=== PATIENT | male | born 1995 | race Caucasian/White ===

== ENCOUNTER → 2023-01-18 13:53 | Outpatient (CLI) | payer OTHER, SELFPAY ==
--- NOTE | 2023-01-18 | DI.MRI.S_ITS ---
PROCEDURE: MR SHOULDER LT W CON INDICATIONS: Bicipital tendinitis, left shoulder TECHNIQUE: After the administration of 12 mL of dilute intra-articular Gadolinium contrast, oblique coronal T1 and T2 spin echo with fat saturation, oblique sagittal T1 spin echo with and without fat saturation, oblique sagittal T2 fast spin echo with fat saturation, axial T1 spin echo with fat saturation through the shoulder. COMPARISON: [facility], , [place] SHOULDER INJECTION MR/CT LT, 01/18/2023, 14:49. [facility], [place], XR SHOULDER 2+ VIEWS LEFT, 08/08/2022, 10:54. FINDINGS: Image quality: Excellent. Rotator cuff: The supraspinatus, infraspinatus, and subscapularis tendons appear intact throughout. No rotator cuff muscle atrophy on sagittal images. Bones and bursae: Moderate osseous edema is seen at the distal clavicle adjacent to the acromioclavicular joint. No definite fracture line is seen. The acromioclavicular joint is normally aligned. There is a small amount of noncommunicating subacromial/subdeltoid bursal fluid. No focal cartilage defect is seen in the glenohumeral joint. No filling defect is seen in the glenohumeral joint space. Capsule and soft tissues: The glenoid labrum is intact. Proximal biceps long head tendon is intact. The glenohumeral ligaments appear to be intact. IMPRESSION: 1. Nonspecific osseous edema at the distal clavicle, possibly related to an osseous contusion, mild acromioclavicular separation injury, or chronic repetitive stress injury/distal acromial osteolysis. The acromioclavicular joint is normally aligned. 2. No labral tear. Biceps long head tendon is intact. No significant rotator cuff tendon tear. 3. Small noncommunicating subacromial/subdeltoid bursal effusion or mild bursitis. Approved by: Darwin Guardado M.D. on 01/18/2023 at 20:54
--- NOTE | 2023-01-18 | DI.RAD.S_ITS ---
PROCEDURE: [place] SHOULDER INJECTION MR/CT LT INDICATIONS: Bicipital tendinitis, left shoulder COMPARISON: None TECHNIQUE: The indications, alternatives, benefits, risks, and complications of the procedure were explained to the patient. Written informed consent was obtained and placed in the chart. The shoulder was examined fluoroscopically and a site for needle placement chosen for entry into the glenohumeral joint from an anterior approach. The skin was prepped and draped in a sterile fashion, and 1% lidocaine infiltrated from skin down to joint capsule. A spinal needle was inserted into the glenohumeral joint, and a small amount of iodinated contrast media injected to confirm intra-articular placement of the needle tip. This was followed by approximately 12 mL dilute solution of a gadolinium containing MR contrast agent. The needle was removed and a dressing was applied. The patient was given postprocedural instructions and sent to the MR suite for MR imaging. FINDINGS: A single fluoroscopic spot image demonstrates intra-articular location of injected iodinated contrast. IMPRESSION: Successful fluoroscopically guided administration of dilute Gadolinium solution into the shoulder joint for MR arthrogram. Dictated by: Darwin Guadalupe M.D. on 01/18/2023 at 16:06 Approved by: Darwin Guadalupe M.D. on 01/18/2023 at 16:06
== END ==
PROVIDERS: Referring Provider Orthopaedic Surgery; Visit Provider Orthopaedic Surgery
DX: M75.22 Bicipital tendinitis, left shoulder (principal); R60.0 Localized edema; M75.52 Bursitis of left shoulder
CPT/HCPCS: 23350; 73222

== ENCOUNTER → 2023-12-06 11:11 | Outpatient (CLI) | payer OTHER, SELFPAY ==
[2023-12-26 11:11] LABS: Lactoferrin, Fecal Quant <1.00 ug/mL(g) (0.00-7.24)
== END ==
PROVIDERS: PCP Family Medicine; Referring Provider Family Medicine; Visit Provider Family Medicine
DX: K58.2 Mixed irritable bowel syndrome (principal); R19.4 Change in bowel habit
CPT/HCPCS: 83631

== ENCOUNTER 2024-02-13 09:45 | Outpatient (RCR) | payer OTHER, SELFPAY ==
--- NOTE | 2024-01-15 15:55 | PT.OIE ---
Current Diagnoses Stiffness of right shoulder, not elsewhere classified (01/15/24) Stiffness of right ankle, not elsewhere classified (01/15/24) Achilles tendinitis, unspecified leg (01/15/24) Myalgia, other site (01/15/24) Other lack of coordination (01/15/24) Weakness (01/15/24) Past Medical History (Last Updated 12/16/23 @ 20:44 by Andreina Nieves) Achilles tendonitis Chronic back pain Depression Family history of rheumatoid arthritis Foot pain Fractures Irritable bowel syndrome with both constipation and diarrhea Rheumatoid arthritis (~2010) Shoulder pain Past Surgical History (Last Updated 12/16/23 @ 20:44 by Andreina Nieves) Anesthesia History of surgery (~03/06/23) Visit Care Team Role Provider Type Tonya Hernandez DO Attending Provider Physician Family Provider Primary Care Provider Referring Provider Specialty: Family Practice Address: [address] [place] [address], [address], [facility] Email: [email or web address] Physical Therapy Initial Evaluation PT-OP-A Visit Information Start: 01/12/24 12:55 Freq: Status: Active Protocol: Document 01/15/24 09:00 NM (Rec: 01/15/24 10:27 NM [id number]) Out-Patient Physical Therapy Visit Information Visit Information Visit Type Initial Evaluation Visit Start Time 09:00 Visit Stop Time 09:50 Visit Number Evaluation Information Evaluation Date 01/15/24 Precautions Precautions Hx of L distal clavicle excision, arthritis PT-OP-B Current Condition Start: 01/12/24 12:55 Freq: Status: Active Protocol: Document 01/15/24 09:00 NM (Rec: 01/15/24 10:27 NM [id number]) Current Condition History of Current Condition Onset Date July 2023 R ankle, about 1 year ago R shoulder blade Current Complaints pain, achiness, decreased participation History of Current Condition Pt presents with R shoulder blade and R achilles pain. Has been running, but reports that increase in training makes works. Better when resting but comes back with trianing. Reports that feels puffy, achiness, worse in am. He has had this since july. He is planning to run a race this weekend; 15 miles, planning to go slow and walk a lot. Reports that he has been doing single leg heel raise on stairs (states not great with running but ok with resting), has been been doing seated heel raises with wt; feels good during. Pt has been running off and on, states he amped up too fast which led to. He states that he has been intermittent strength training and single leg stability; states 3-4 way since injury. Pt has been weaning off of running, states has been running 2-5 mi, current mileage 2-3 days/wk, opting for rest. Prior to training, 1x/wk for 2-5 miles; when training was running 5-7 mi, 3-4 days/wk and amping up speed and distal; all trail running. Started this about 1 month before July 2023. Pt has hx of this before several times (hx of dancing which was constant, most recent in 2020 from a hike with news), stopped running for 3 months. Worse with hills, push off. Wears superfeet when running ( high arch), was wearing a new shoe when he was injured. Has tendency to want to roll it but reports pops. Was icing repetitively. Pt does a lot of hiking and back packing, reports feels good with hiking and walking up hills; reports achy but not stiff the next day. Pt reports that he had L shoulder surgery distal clavicle excision; was helping his parents move, has R shoulder blade/rhomboid pain. Worse with lifting meredith away from body, crunching, pinching with lifting up, sitting, sleeping on R shoulder; he reports rhomboid strain on R side from lifting several years ago. He reports that he has neck tightness and soreness, rolls his neck a lot . Denies injuries to neck, numbness/tingling/burning. Does not move around. Has not been doing any strengthening. Has not been doing any lifting or exericse for now. 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)- currently in off season of work right now PT-OP-C Subjective Start: 01/12/24 12:55 Freq: Status: Active Protocol: Document 01/15/24 09:00 NM (Rec: 01/15/24 10:27 NM [id number]) OP-PT Subjective Patient Comments Patient Comments Pt consents to participate in evaluation Patient Questionnaires Foot & Ankle Ability Measure- ADL and Sports FAAM-ADL Score 80/84 FAAM-Sport Score 22/32 Lower Extremity Functional Scale LEFS Score 70/80 OP-PT Pain Assessment Location R scapula Pain Location Details rhomboid, LS, UT Intensity 4 Scale Used Numeric (0 - 10) Pain Aggravating Factors Lifting,Breathing Pain Alleviating Factors Heat,Massage,Rest R ankle Pain Location Details Achilles, forward of achilles on lateral and medial side Intensity 4 Scale Used Numeric (0 - 10) Description Aching Description- Other puff, annoying Frequency Frequent Pain Aggravating Factors Exercise,Walking Other Pain Aggravating Factors running Pain Alleviating Factors Rest PT-OP-E Functional Tests Start: 01/12/24 12:55 Freq: Status: Active Protocol: Document 01/15/24 09:00 NM (Rec: 01/15/24 10:27 NM [id number]) Functional Tests Squat Test Score 10 Comments decreased heel cord length, valgus Single Leg Squat Test Score 2 ea Comment valgus, poor hip and ankle stability Other Dorsiflexion test Name of Test in 1/2 kneel, measured 4 fingers from wall, heel on ground Score 4 cm R, 3 cm L Comment reports tightness in achilles PT-OP-F Manual Assessment Start: 01/12/24 12:55 Freq: Status: Active Protocol: Document 01/15/24 09:00 NM (Rec: 01/15/24 10:27 NM [id number]) Manual Assessments Soft Tissue Assessment Soft Tissue Mobility Assessment L medial scapular border 10 cm from spine with winging, R medial scapular border 8 cm from spine with no winging No noticeable or palpable bulge or tender spot on R Achilles Joint Mobility Assessment Joint Mobility Assessment Mild limitations in R scapular mobility, demos strong tendency for elevation; mild joint clicking Decreased R ankle talocrural and subtalar mobility, decreased midfoot mobility PT-OP-G Mobility & Gait Start: 01/12/24 12:55 Freq: Status: Active Protocol: Document 01/15/24 09:00 NM (Rec: 01/15/24 10:27 NM [id number]) OP Gait Assessment Gait Gait Assistance Required: Independent Distance (Feet) 150 Comments Gait Comments Decreased R propulsion and early heel off Mild limitations in trunk rotation with gait PT-OP-J Posture/Palpation/Skin Start: 01/12/24 12:55 Freq: Status: Active Protocol: Document 01/15/24 09:00 NM (Rec: 01/15/24 10:27 NM [id number]) Posture Evaluation Position Standing Head/C-Spine Posture Forward Head Shoulder Posture (L) Rounded,(R) Rounded Scapula Posture (L) Protracted,(R) Elevated,(L ) Winged Arm Posture (L) Internally Rotated,(R) Internally Rotated Pelvis Posture Anteriorly Tilted Foot Arch (R) High Arch,(L) Medium Arch Palpation Assessment Location R scapula Palpation Details Tightness and mild tenderness along trapezius, levator scapula, rhomboids, lat No tenderness along thoracic or cervical spine except mild tenderness at CT junction R ankle Palpation Details Mild tenderness along R achilles, no significant thickening compared to LLE PT-OP-K Range of Motion Start: 01/12/24 12:55 Freq: Status: Active Protocol: Document 01/15/24 09:00 NM (Rec: 01/15/24 10:27 NM [id number]) Cervical Spine Range of Motion Cervical Spine Active Degrees Flexion 60 Extension 60 Rotation Left 60 Rotation Right 80 Lateral Flexion Left 40 Lateral Flexion Right 45 Comments tighter on R than L, pinching w/ extension TS: 6 cm rotation, 8 deg L rotation, WFL all other directions w/o pain Shoulder Goniometric Range of Motion Shoulder Right Testing Position Sitting Flexion 140 Abduction 140 External Rotation at 90 degrees 90 Abduction Left Testing Position Sitting Flexion 150 Abduction 140 External Rotation at 90 degrees 90 Abduction Ankle and Foot Goniometric Range of Motion Ankle and Foot Right Dorsiflexion with Knee Flexed 2 Plantarflexion 40 Inversion 20 Eversion 10 Left Dorsiflexion with Knee Flexed 4 Plantarflexion 50 Inversion 30 Eversion 15 PT-OP-L Special Tests Start: 01/12/24 12:55 Freq: Status: Active Protocol: Document 01/15/24 09:00 NM (Rec: 01/15/24 10:27 NM [id number]) Special Tests Cervical Spine Special Tests Distraction Comments assess next session Spurling's Test Comments assess next session Shoulder Special Tests Empty Can Test Results - Foot/Ankle Special Tests Freitas Test Results - PT-OP-M Strength Start: 01/12/24 12:55 Freq: Status: Active Protocol: Document 01/15/24 09:00 NM (Rec: 01/15/24 10:27 NM [id number]) Cervical Spine Strength Cervical Spine Manual Muscle Testing Flexion (C1-2) 4 Good Extension 4 Good Rotation Left 4 Good Rotation Right 4 Good Lateral Flexion Left (C3) 4 Good Lateral Flexion Right (C3) 4 Good Comments No pain with resisted testing Trunk Strength Trunk Manual Muscle Testing Flexion 4 Good Extension 4 Good Rotation Left 4 Good Rotation Right 4 Good Lateral Flexion Left 4 Good Lateral Flexion Right 4 Good Comments no pain with resisted testing Shoulder Strength Shoulder Manual Muscle Testing Right Flexion 5 Normal Abduction (C5) 5 Normal External Rotation 5 Normal Internal Rotation 5 Normal Left Flexion 4+ Good+ Abduction (C5) 4+ Good+ External Rotation 4 Good Internal Rotation 4+ Good+ Comments No pain with resisted motion Hip Strength Hip Manual Muscle Testing Right Flexion (L2) 4 Good Extension (S1) 4- Good- Abduction 4- Good- Adduction 4 Good External Rotation 4 Good Internal Rotation 4- Good- Left Flexion (L2) 4 Good Extension (S1) 4 Good Abduction 4 Good Adduction 4 Good External Rotation 4 Good Internal Rotation 4 Good Knee Strength Knee Manual Muscle Testing Right Flexion (S2) 4 Good Extension (L3) 4- Good- Left Flexion (S2) 4 Good Extension (L3) 4 Good Ankle/Foot Strength Ankle and Foot Manual Muscle Testing Right Dorsiflexion (L4) 4+ Good+ Plantarflexion (S1) 4 Good Inversion 4+ Good+ Eversion (S1) 4+ Good+ Comments 16 single leg heel raise- challenging but denies pain Left Dorsiflexion (L4) 4+ Good+ Plantarflexion (S1) 4 Good Inversion 4+ Good+ Eversion (S1) 4+ Good+ Comments 22 single leg heel raises PT-OP-Q Treatments Start: 01/12/24 12:55 Freq: Status: Active Protocol: Document 01/15/24 09:00 NM (Rec: 01/15/24 10:27 NM [id number]) Therapeutic Exercises Supine Exercises single leg bridge Side bilateral Reps/Minutes 10 ea Comments cued level pelvis Standing Exercises single leg heel raise Side right Equipment Used neutral to ground Reps/Minutes 10 Comments cueing for form only Other Exercises bent over row Side right Resistance 5# db Equipment Used standard chair Reps/Minutes 15 ea self mobilization Other Exercise Name rhomboid, trapezius Side right Equipment Used racquetball Reps/Minutes 2 minutes Self-Care/Home Management Treatment Education Patient Education Home Exercise Program Other Education Educated on tendon loading program for symptom management PT-OP-T Assessment and Plan Start: 01/12/24 12:55 Freq: Status: Active Protocol: Document 01/15/24 09:00 NM (Rec: 01/15/24 10:27 NM [id number]) Physical Therapy Assessment Rehab Potential Rehabilitation Potential Good Evaluation Complexity Number of Personal Factors/Comorbidities 3 or More Number of Body Systems Impaired 3 Clinical Presentation at Evaluation Stable Impairments Impairments Activity Tolerance,Balance, Functional Activities, Functional Mobility,Gait, Integument,Pain,Posture,ROM, Soft Tissue Mobility,Strength, Transfers Other Concerns Barriers to Rehabilitation PMH of arthritis, back pain, depression. Pt has a race this weekend (first weekend of January) and will plan to taper exercise/running following race, which will impact rehab results Goals Five Impairment lifting 12# for work Short Term Goal (STG) Pt will be educated on body mechanics for lifting in order to demonstrate improved safety and posture during work STG Duration 8 weeks Senior Living Goal (LTG) Pt will be able to lift > 12# from floor to overhead at least 15 times without increase in symptoms in order to demonstrate improved symptom management with job requirements LTG Duration 12 weeks Four Impairment L cervical spine rotation limited 60 deg Pot Tender Goal (LTG) Pt will improve L cervical spine rotation to within 5 deg of R cervical rotation for improved visual scanning LTG Duration 12 weeks Three Impairment RLE strength impaired Short Term Goal (STG) Pt will be able to perform at least 10 single leg squats B without compensation and at least 25 R heel raises without increase in symptom provocation in order to demonstrate improved symptom management for running STG Duration 8 weeks Pot Tender Goal (LTG) Pt will trial jogging or running at least 2x/wk without increase in R achilles pain in order to demonstrates improved symptom management LTG Duration 12 weeks Two Impairment not performing regular strength training Short Term Goal (STG) Pt will report compliance with HEP at least 2-3x/wk in order to maximize progression with PT STG Duration 4 weeks Pot Tender Goal (LTG) Pt will report compliance with HEP at least 3x/wk or initiate strengthening program to supplement training at least 2-3x/wk for maintenance LTG Duration 12 weeks One Impairment B ankle dorsiflexion limited Senior Living Goal (LTG) Pt will improve B ankle dorsiflexion to at least 8 deg in order to demonstrate improved heel cord length, longer stance phase during gait, and improved symptom management LTG Duration 12 weeks Assessment Summary Assessment Pt is a 28 y.o. male presenting with R Achilles pain and R mid-thoracic/ scapular pain. Pt has limitations in R ankle strength and ROM, in addition to global R quad/hip weakness. He also demonstrates strong knee valgus, poor hip stability, and increased ankle instability, especially with dynamic and single leg activities, ultimately impacting his training and running form. At time of injury, pt had quick increase in activity level without supplementation of outside strength training to offset pt 's running frequency. Pt's R ankle symptoms are consistent with achilles tendonosis dx. Pt's R mid-thoracic scapular pain consistent with muscular tightness of cervical paraspinals and periscapular muscles following strain. Due to time, did not fully assess cervical spine to rule out symptom radiation; however, pt responds well to gentle strengthening of periscapulars and soft tissue mobilization. PT educated pt on exam findings and plan of care. Pt will be running a race this weekend, which may impact PT outcomes. He is in his off season portion of his job, which normally requires repetitive lifting, so pt will not be performing same exacerbating symptoms as he would have previously. Pt would benefit from skilled PT for flexibilty, strengthening, progressive tendon loading, and stability training of RUE and RLE in order to improve symptom management and ability to participate in recreational activities/ exercise. Physical Therapy Plan Frequency and Duration Frequency of Treatment 1-2x/wk Duration of treatment (weeks) 12 Plan of Care Start Date 01/15/24 Plan of Care End Date 04/12/24 Therapeutic Interventions Therapeutic Interventions Balance Training,Gait Training ,Home Exercise Program,Joint Mobilizations,Manual Therapy, Neuromuscular Re-education, Orthotic/Prosthetic Management ,Patient/Caregiver Education, Self-Care/Home Management, Sensory Integration,Soft Tissue Mobilization,Taping, Therapeutic Activities, Therapeutic Exercises Modalities Cold Pack/Ice Massage,Electric Stimulation,Hot Packs, Ultrasound Next Visit Focus/Plan Next Note Type Treatment Note Next Visit Plan Assess neck, 1st rib hip abduction, single leg bridge, core strength, hip adduction, hip IR in seated and with standing (hip airplane)
--- NOTE | 2024-01-22 08:44 | PT.OTN ---
Current Diagnoses Stiffness of right shoulder, not elsewhere classified (01/22/24) Stiffness of right ankle, not elsewhere classified (01/22/24) Achilles tendinitis, unspecified leg (01/22/24) Myalgia, other site (01/22/24) Other lack of coordination (01/22/24) Weakness (01/22/24) Physical Therapy Treatment Note PT-OP-A Visit Information Start: 01/12/24 12:55 Freq: Status: Active Protocol: Document 01/22/24 07:29 NM (Rec: 01/22/24 07:36 NM [id number]) Out-Patient Physical Therapy Visit Information Visit Information Visit Type Treatment Note Visit Start Time 07:30 Visit Stop Time 08:18 Visit Number Evaluation Information Evaluation Date 01/15/24 Precautions Precautions Hx of L distal clavicle excision, arthritis PT-OP-B Current Condition Start: 01/12/24 12:55 Freq: Status: Active Protocol: Document 01/15/24 09:00 NM (Rec: 01/15/24 10:27 NM [id number]) Current Condition History of Current Condition Onset Date July 2023 R ankle, about 1 year ago R shoulder blade Current Complaints pain, achiness, decreased participation History of Current Condition Pt presents with R shoulder blade and R achilles pain. Has been running, but reports that increase in training makes works. Better when resting but comes back with trianing. Reports that feels puffy, achiness, worse in am. He has had this since july. He is planning to run a race this weekend; 15 miles, planning to go slow and walk a lot. Reports that he has been doing single leg heel raise on stairs (states not great with running but ok with resting), has been been doing seated heel raises with wt; feels good during. Pt has been running off and on, states he amped up too fast which led to. He states that he has been intermittent strength training and single leg stability; states 3-4 way since injury. Pt has been weaning off of running, states has been running 2-5 mi, current mileage 2-3 days/wk, opting for rest. Prior to training, 1x/wk for 2-5 miles; when training was running 5-7 mi, 3-4 days/wk and amping up speed and distal; all trail running. Started this about 1 month before July 2023. Pt has hx of this before several times (hx of dancing which was constant, most recent in 2020 from a hike with news), stopped running for 3 months. Worse with hills, push off. Wears superfeet when running ( high arch), was wearing a new shoe when he was injured. Has tendency to want to roll it but reports pops. Was icing repetitively. Pt does a lot of hiking and back packing, reports feels good with hiking and walking up hills; reports achy but not stiff the next day. Pt reports that he had L shoulder surgery distal clavicle excision; was helping his parents move, has R shoulder blade/rhomboid pain. Worse with lifting meredith away from body, crunching, pinching with lifting up, sitting, sleeping on R shoulder; he reports rhomboid strain on R side from lifting several years ago. He reports that he has neck tightness and soreness, rolls his neck a lot . Denies injuries to neck, numbness/tingling/burning. Does not move around. Has not been doing any strengthening. Has not been doing any lifting or exericse for now. 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 States race when well, reports that he did feel looser at his Achilles but states the he did feel pain with mile 3 & 8. States lower calf felt really tight at one point of race, hilly area, almost walked but did not have to. Pt reports that he he shoulder blade pain still, states worse following rows, 5 # or a little more; neck stiff PT-OP-E Functional Tests Start: 01/12/24 12:55 Freq: Status: Active Protocol: Document 01/15/24 09:00 NM (Rec: 01/15/24 10:27 NM [id number]) Functional Tests Squat Test Score 10 Comments decreased heel cord length, valgus Single Leg Squat Test Score 2 ea Comment valgus, poor hip and ankle stability Other Dorsiflexion test Name of Test in 1/2 kneel, measured 4 fingers from wall, heel on ground Score 4 cm R, 3 cm L Comment reports tightness in achilles PT-OP-F Manual Assessment Start: 01/12/24 12:55 Freq: Status: Active Protocol: Document 01/15/24 09:00 NM (Rec: 01/15/24 10:27 NM [id number]) Manual Assessments Soft Tissue Assessment Soft Tissue Mobility Assessment L medial scapular border 10 cm from spine with winging, R medial scapular border 8 cm from spine with no winging No noticeable or palpable bulge or tender spot on R Achilles Joint Mobility Assessment Joint Mobility Assessment Mild limitations in R scapular mobility, demos strong tendency for elevation; mild joint clicking Decreased R ankle talocrural and subtalar mobility, decreased midfoot mobility PT-OP-G Mobility & Gait Start: 01/12/24 12:55 Freq: Status: Active Protocol: Document 01/15/24 09:00 NM (Rec: 01/15/24 10:27 NM [id number]) OP Gait Assessment Gait Gait Assistance Required: Independent Distance (Feet) 150 Comments Gait Comments Decreased R propulsion and early heel off Mild limitations in trunk rotation with gait PT-OP-J Posture/Palpation/Skin Start: 01/12/24 12:55 Freq: Status: Active Protocol: Document 01/15/24 09:00 NM (Rec: 01/15/24 10:27 NM [id number]) Posture Evaluation Position Standing Head/C-Spine Posture Forward Head Shoulder Posture (L) Rounded,(R) Rounded Scapula Posture (L) Protracted,(R) Elevated,(L ) Winged Arm Posture (L) Internally Rotated,(R) Internally Rotated Pelvis Posture Anteriorly Tilted Foot Arch (R) High Arch,(L) Medium Arch Palpation Assessment Location R scapula Palpation Details Tightness and mild tenderness along trapezius, levator scapula, rhomboids, lat No tenderness along thoracic or cervical spine except mild tenderness at CT junction R ankle Palpation Details Mild tenderness along R achilles, no significant thickening compared to LLE PT-OP-K Range of Motion Start: 01/12/24 12:55 Freq: Status: Active Protocol: Document 01/15/24 09:00 NM (Rec: 01/15/24 10:27 NM [id number]) Cervical Spine Range of Motion Cervical Spine Active Degrees Flexion 60 Extension 60 Rotation Left 60 Rotation Right 80 Lateral Flexion Left 40 Lateral Flexion Right 45 Comments tighter on R than L, pinching w/ extension TS: 6 cm rotation, 8 deg L rotation, WFL all other directions w/o pain Shoulder Goniometric Range of Motion Shoulder Right Testing Position Sitting Flexion 140 Abduction 140 External Rotation at 90 degrees 90 Abduction Left Testing Position Sitting Flexion 150 Abduction 140 External Rotation at 90 degrees 90 Abduction Ankle and Foot Goniometric Range of Motion Ankle and Foot Right Dorsiflexion with Knee Flexed 2 Plantarflexion 40 Inversion 20 Eversion 10 Left Dorsiflexion with Knee Flexed 4 Plantarflexion 50 Inversion 30 Eversion 15 PT-OP-L Special Tests Start: 01/12/24 12:55 Freq: Status: Active Protocol: Document 01/22/24 07:29 NM (Rec: 01/22/24 08:03 NM [id number]) Special Tests Cervical Spine Special Tests Transverse Ligament Test Results - Alar Ligament Test Results - Vertebral Artery Test Results 116/77 mmHg, 63 bpm; cranial n intact, no symptoms w/ positional testing Comments carotid palpation/auscultation and heart WFL Distraction Test Results - Comments feels good but no change in symptoms Spurling's Test Test Results - Comments pinching reported at base of neck, no PT-OP-M Strength Start: 01/12/24 12:55 Freq: Status: Active Protocol: Document 01/15/24 09:00 NM (Rec: 01/15/24 10:27 NM [id number]) Cervical Spine Strength Cervical Spine Manual Muscle Testing Flexion (C1-2) 4 Good Extension 4 Good Rotation Left 4 Good Rotation Right 4 Good Lateral Flexion Left (C3) 4 Good Lateral Flexion Right (C3) 4 Good Comments No pain with resisted testing Trunk Strength Trunk Manual Muscle Testing Flexion 4 Good Extension 4 Good Rotation Left 4 Good Rotation Right 4 Good Lateral Flexion Left 4 Good Lateral Flexion Right 4 Good Comments no pain with resisted testing Shoulder Strength Shoulder Manual Muscle Testing Right Flexion 5 Normal Abduction (C5) 5 Normal External Rotation 5 Normal Internal Rotation 5 Normal Left Flexion 4+ Good+ Abduction (C5) 4+ Good+ External Rotation 4 Good Internal Rotation 4+ Good+ Comments No pain with resisted motion Hip Strength Hip Manual Muscle Testing Right Flexion (L2) 4 Good Extension (S1) 4- Good- Abduction 4- Good- Adduction 4 Good External Rotation 4 Good Internal Rotation 4- Good- Left Flexion (L2) 4 Good Extension (S1) 4 Good Abduction 4 Good Adduction 4 Good External Rotation 4 Good Internal Rotation 4 Good Knee Strength Knee Manual Muscle Testing Right Flexion (S2) 4 Good Extension (L3) 4- Good- Left Flexion (S2) 4 Good Extension (L3) 4 Good Ankle/Foot Strength Ankle and Foot Manual Muscle Testing Right Dorsiflexion (L4) 4+ Good+ Plantarflexion (S1) 4 Good Inversion 4+ Good+ Eversion (S1) 4+ Good+ Comments 16 single leg heel raise- challenging but denies pain Left Dorsiflexion (L4) 4+ Good+ Plantarflexion (S1) 4 Good Inversion 4+ Good+ Eversion (S1) 4+ Good+ Comments 22 single leg heel raises PT-OP-Q Treatments Start: 01/12/24 12:55 Freq: Status: Active Protocol: Document 01/22/24 07:29 NM (Rec: 01/22/24 07:36 NM [id number]) Therapeutic Exercises Supine Exercises suboccipitals Supine Exercise Name release and self traction: 1. w/ chin tuck, 2. w/ traction Side bilateral Equipment Used 2 tennis ball Reps/Minutes 2 minutes Comments reports feels good but not as good as manual traction Standing Exercises BAPS Side right Resistance level 5 Reps/Minutes 15 ea CW and CCW Comments feels good, warm up single leg heel raise Side bilateral Equipment Used hands on wall for B support Reps/Minutes 3x10 ea Comments pt reports L worse w/ heel raise, better post mob Manual Therapy Treatment Consent Patient gave verbal consent for manual Yes treatment Soft Tissue Mobilization cervical spine Body Location LS, UT, paraspinals, suboccipitals, scalenes Mobilization Type Rolling,Strumming Intensity/Depth Moderate Body Position Supine Comments Trigger points at LS, UT. MWM of scalenes, LS/UT during R shoulder ABD R shoulder Body Location posterior cuff, rhomboids, periscapulars Mobilization Type Rolling,Strumming,Trigger Point Release Intensity/Depth Moderate Body Position Sidelying Comments L sidelying. Trigger points at rhomboids, thoracic paraspinals. Reduced with mobilization but still present at end of session R ankle Body Location calf, achilles Mobilization Type Instrument Assisted,Rolling, Other Intensity/Depth Moderate Body Position Prone Comments Moderate intensity using gua- sha tool. Trigger point at medial calf near achilles/ gastro interface, reduced with mobilization, tender Joint Mobilizations scapulothoracic Joint R Direction elevation/depression, protraction/retraction Grade III Body Position Sidelying Reps/Duration 20 Comments Demos scapular winging 1st ribs Joint R Direction caudal Grade III Body Position Sidelying Reps/Duration 2x15 Comments Performed with breathwork, mobilization with movement in R shoulder ABD. 1st rib elevated L ankle Direction PA, AP Body Position II Reps/Duration 10 Comments Educated on self post-glide to reduce impingement. Pt informed needs referral to address L ankle in sessions R ankle Joint talocrural Direction PA, AP Grade III Reps/Duration 4x30 ea Comments Prone and supine. Monitored for pain, performed between sets of heel raises Manual Traction cervical spine Body Position Supine Reps/Duration 2x30 ea Comments with slight cervical flexion to address lower cervical spine. Reports good stretch, does not relieve symptoms but feels really good and helps Self-Care/Home Management Treatment Education Patient Education Joint Protection,Pain Management Other Education 4 minutes: educated on tendon loading pain scale, issued to patient for self symptom management during exercise. Emphasis on remaining in green zone (0-4) with exercise, minimize time in yellow zone ( 4-6), avoid red zone (6-10) PT-OP-T Assessment and Plan Start: 01/12/24 12:55 Freq: Status: Active Protocol: Document 01/22/24 07:29 NM (Rec: 01/22/24 07:36 NM [id number]) Physical Therapy Assessment Goals Five Impairment lifting 12# for work Short Term Goal (STG) Pt will be educated on body mechanics for lifting in order to demonstrate improved safety and posture during work STG Duration 8 weeks Slasher Goal (LTG) Pt will be able to lift > 12# from floor to overhead at least 15 times without increase in symptoms in order to demonstrate improved symptom management with job requirements LTG Duration 12 weeks Four Impairment L cervical spine rotation limited 60 deg Slasher Goal (LTG) Pt will improve L cervical spine rotation to within 5 deg of R cervical rotation for improved visual scanning LTG Duration 12 weeks Three Impairment RLE strength impaired Short Term Goal (STG) Pt will be able to perform at least 10 single leg squats B without compensation and at least 25 R heel raises without increase in symptom provocation in order to demonstrate improved symptom management for running STG Duration 8 weeks Slasher Goal (LTG) Pt will trial jogging or running at least 2x/wk without increase in R achilles pain in order to demonstrates improved symptom management LTG Duration 12 weeks Two Impairment not performing regular strength training Short Term Goal (STG) Pt will report compliance with HEP at least 2-3x/wk in order to maximize progression with PT STG Duration 4 weeks Snf Goal (LTG) Pt will report compliance with HEP at least 3x/wk or initiate strengthening program to supplement training at least 2-3x/wk for maintenance LTG Duration 12 weeks One Impairment B ankle dorsiflexion limited Snf Goal (LTG) Pt will improve B ankle dorsiflexion to at least 8 deg in order to demonstrate improved heel cord length, longer stance phase during gait, and improved symptom management LTG Duration 12 weeks Assessment Summary Assessment Pt tolerated session fair. Session emphasis on finishing cervical spine evaluation and manual treatment for pain reduction. Pt has several trigger points at R ankle, cervical spine and periscapulars that reproduce pain symptoms and reduce overall mobility. Right 1st rib elevated today, mild reduction in scapular symptoms with shoulder blade post mobilization. Pt's scapular symptoms not reproduced with vertebral compression nor reduced with traction, indicating likely not disc- related. Symptoms most likely related to decreased cervicothoracic mobility, soft tissue restrictions. Good response to self traction. Pt' s R ankle symptoms not aggravated with single leg heel raises, symptoms improved with loading. Pt would benefit from skilled PT for progressive tendon loading, flexibility, and ergonomic/ body mechanics training in order to improve symptom management. Physical Therapy Plan Frequency and Duration Frequency of Treatment 1-2x/wk Duration of treatment (weeks) 12 Plan of Care Start Date 01/15/24 Plan of Care End Date 04/12/24 Therapeutic Interventions Therapeutic Interventions Balance Training,Gait Training ,Home Exercise Program,Joint Mobilizations,Manual Therapy, Neuromuscular Re-education, Orthotic/Prosthetic Management ,Patient/Caregiver Education, Self-Care/Home Management, Sensory Integration,Soft Tissue Mobilization,Taping, Therapeutic Activities, Therapeutic Exercises Modalities Cold Pack/Ice Massage,Electric Stimulation,Hot Packs, Ultrasound Next Visit Focus/Plan Next Note Type Treatment Note Next Visit Plan Next session: L calf stretch, R single leg heel raises w/ ankle wt vs on leg press, s/l hip abduction, split squat, s/ l hip adduction, hip IR in standing (kickstand), prone over ball ITWY, TS ext and rot POC: ankle, glute, hip, quad, core strength Manual: R ankle STM and mob, cervical/scapular, shoulder prn
--- NOTE | 2024-01-25 11:21 | PT.OTN ---
Current Diagnoses Stiffness of right shoulder, not elsewhere classified (01/25/24) Stiffness of right ankle, not elsewhere classified (01/25/24) Achilles tendinitis, unspecified leg (01/25/24) Myalgia, other site (01/25/24) Other lack of coordination (01/25/24) Weakness (01/25/24) Physical Therapy Treatment Note PT-OP-A Visit Information Start: 01/12/24 12:55 Freq: Status: Active Protocol: Document 01/25/24 09:48 SW (Rec: 01/25/24 11:20 SW [id number]) Out-Patient Physical Therapy Visit Information Visit Information Visit Type Treatment Note Visit Start Time 09:45 Visit Stop Time 10:25 Visit Number 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 Has been running, but reports that increase in training makes works. Better when resting but comes back with trianing. Reports that feels puffy, achiness, worse in am. He has had this since july. He is planning to run a race this weekend; 15 miles, planning to go slow and walk a lot. Reports that he has been doing single leg heel raise on stairs (states not great with running but ok with resting), has been been doing seated heel raises with wt; feels good during. Pt has been running off and on, states he amped up too fast which led to. He states that he has been intermittent strength training and single leg stability; states 3-4 way since injury. Pt has been weaning off of running, states has been running 2-5 mi, current mileage 2-3 days/wk, opting for rest. Prior to training, 1x/wk for 2-5 miles; when training was running 5-7 mi, 3-4 days/wk and amping up speed and distal; all trail running. Started this about 1 month before July 2023. Pt has hx of this before several times (hx of dancing which was constant, most recent in 2020 from a hike with news), stopped running for 3 months. Worse with hills, push off. Wears superfeet when running ( high arch), was wearing a new shoe when he was injured. Has tendency to want to roll it but reports pops. Was icing repetitively. Pt does a lot of hiking and back packing, reports feels good with hiking and walking up hills; reports achy but not stiff the next day. Pt reports that he had L shoulder surgery distal clavicle excision; was helping his parents move, has R shoulder blade/rhomboid pain. Worse with lifting meredith away from body, crunching, pinching with lifting up, sitting, sleeping on R shoulder; he reports rhomboid strain on R side from lifting several years ago. He reports that he has neck tightness and soreness, rolls his neck a lot . Denies injuries to neck, numbness/tingling/burning. Does not move around. Has not been doing any strengthening. Has not been doing any lifting or exericse for now. 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 PT-OP-E Functional Tests Start: 01/12/24 12:55 Freq: Status: Active Protocol: Document 01/15/24 09:00 NM (Rec: 01/15/24 10:27 NM [id number]) Functional Tests Squat Test Score 10 Comments decreased heel cord length, valgus Single Leg Squat Test Score 2 ea Comment valgus, poor hip and ankle stability Other Dorsiflexion test Name of Test in 1/2 kneel, measured 4 fingers from wall, heel on ground Score 4 cm R, 3 cm L Comment reports tightness in achilles PT-OP-F Manual Assessment Start: 01/12/24 12:55 Freq: Status: Active Protocol: Document 01/15/24 09:00 NM (Rec: 01/15/24 10:27 NM [id number]) Manual Assessments Soft Tissue Assessment Soft Tissue Mobility Assessment L medial scapular border 10 cm from spine with winging, R medial scapular border 8 cm from spine with no winging No noticeable or palpable bulge or tender spot on R Achilles Joint Mobility Assessment Joint Mobility Assessment Mild limitations in R scapular mobility, demos strong tendency for elevation; mild joint clicking Decreased R ankle talocrural and subtalar mobility, decreased midfoot mobility PT-OP-G Mobility & Gait Start: 01/12/24 12:55 Freq: Status: Active Protocol: Document 01/15/24 09:00 NM (Rec: 01/15/24 10:27 NM [id number]) OP Gait Assessment Gait Gait Assistance Required: Independent Distance (Feet) 150 Comments Gait Comments Decreased R propulsion and early heel off Mild limitations in trunk rotation with gait PT-OP-J Posture/Palpation/Skin Start: 01/12/24 12:55 Freq: Status: Active Protocol: Document 01/15/24 09:00 NM (Rec: 01/15/24 10:27 NM [id number]) Posture Evaluation Position Standing Head/C-Spine Posture Forward Head Shoulder Posture (L) Rounded,(R) Rounded Scapula Posture (L) Protracted,(R) Elevated,(L ) Winged Arm Posture (L) Internally Rotated,(R) Internally Rotated Pelvis Posture Anteriorly Tilted Foot Arch (R) High Arch,(L) Medium Arch Palpation Assessment Location R scapula Palpation Details Tightness and mild tenderness along trapezius, levator scapula, rhomboids, lat No tenderness along thoracic or cervical spine except mild tenderness at CT junction R ankle Palpation Details Mild tenderness along R achilles, no significant thickening compared to LLE PT-OP-K Range of Motion Start: 01/12/24 12:55 Freq: Status: Active Protocol: Document 01/15/24 09:00 NM (Rec: 01/15/24 10:27 NM [id number]) Cervical Spine Range of Motion Cervical Spine Active Degrees Flexion 60 Extension 60 Rotation Left 60 Rotation Right 80 Lateral Flexion Left 40 Lateral Flexion Right 45 Comments tighter on R than L, pinching w/ extension TS: 6 cm rotation, 8 deg L rotation, WFL all other directions w/o pain Shoulder Goniometric Range of Motion Shoulder Right Testing Position Sitting Flexion 140 Abduction 140 External Rotation at 90 degrees 90 Abduction Left Testing Position Sitting Flexion 150 Abduction 140 External Rotation at 90 degrees 90 Abduction Ankle and Foot Goniometric Range of Motion Ankle and Foot Right Dorsiflexion with Knee Flexed 2 Plantarflexion 40 Inversion 20 Eversion 10 Left Dorsiflexion with Knee Flexed 4 Plantarflexion 50 Inversion 30 Eversion 15 PT-OP-L Special Tests Start: 01/12/24 12:55 Freq: Status: Active Protocol: Document 01/22/24 07:29 NM (Rec: 01/22/24 08:03 NM [id number]) Special Tests Cervical Spine Special Tests Transverse Ligament Test Results - Alar Ligament Test Results - Vertebral Artery Test Results 116/77 mmHg, 63 bpm; cranial n intact, no symptoms w/ positional testing Comments carotid palpation/auscultation and heart WFL Distraction Test Results - Comments feels good but no change in symptoms Spurling's Test Test Results - Comments pinching reported at base of neck, no PT-OP-M Strength Start: 01/12/24 12:55 Freq: Status: Active Protocol: Document 01/15/24 09:00 NM (Rec: 01/15/24 10:27 NM [id number]) Cervical Spine Strength Cervical Spine Manual Muscle Testing Flexion (C1-2) 4 Good Extension 4 Good Rotation Left 4 Good Rotation Right 4 Good Lateral Flexion Left (C3) 4 Good Lateral Flexion Right (C3) 4 Good Comments No pain with resisted testing Trunk Strength Trunk Manual Muscle Testing Flexion 4 Good Extension 4 Good Rotation Left 4 Good Rotation Right 4 Good Lateral Flexion Left 4 Good Lateral Flexion Right 4 Good Comments no pain with resisted testing Shoulder Strength Shoulder Manual Muscle Testing Right Flexion 5 Normal Abduction (C5) 5 Normal External Rotation 5 Normal Internal Rotation 5 Normal Left Flexion 4+ Good+ Abduction (C5) 4+ Good+ External Rotation 4 Good Internal Rotation 4+ Good+ Comments No pain with resisted motion Hip Strength Hip Manual Muscle Testing Right Flexion (L2) 4 Good Extension (S1) 4- Good- Abduction 4- Good- Adduction 4 Good External Rotation 4 Good Internal Rotation 4- Good- Left Flexion (L2) 4 Good Extension (S1) 4 Good Abduction 4 Good Adduction 4 Good External Rotation 4 Good Internal Rotation 4 Good Knee Strength Knee Manual Muscle Testing Right Flexion (S2) 4 Good Extension (L3) 4- Good- Left Flexion (S2) 4 Good Extension (L3) 4 Good Ankle/Foot Strength Ankle and Foot Manual Muscle Testing Right Dorsiflexion (L4) 4+ Good+ Plantarflexion (S1) 4 Good Inversion 4+ Good+ Eversion (S1) 4+ Good+ Comments 16 single leg heel raise- challenging but denies pain Left Dorsiflexion (L4) 4+ Good+ Plantarflexion (S1) 4 Good Inversion 4+ Good+ Eversion (S1) 4+ Good+ Comments 22 single leg heel raises PT-OP-Q Treatments Start: 01/12/24 12:55 Freq: Status: Active Protocol: Document 01/25/24 09:48 SW (Rec: 01/25/24 11:20 SW [id number]) Gym Equipment Therapeutic Ball I,Y,T,W Exercise Details Shoulder strength (issued HEP w/out ball) Ball Size/Color Green Ball Body Position Prone Reps/Duration x10 ea Comments cues for cervical alignment, tactile feedback to facilitate movement, scapular winging present Therapeutic Exercises Sidelying Exercises Hip Abd/add Sidelying Exercise Name Hip abd/add (issued HEP) Side bilateral Resistance AROM Reps/Minutes 3x10 Comments cues for alignment, good mm fatigue Standing Exercises Calf stretch Standing Exercise Name Gastroc/soleus stretch (issued HEP) Side bilateral Equipment Used Jan Reps/Minutes 2 x 60 ea Comments pt edu on mms, pain free stretch single leg heel raise Side bilateral Resistance 4# weight Equipment Used table support Reps/Minutes x10 ea Comments good tolerance Manual Therapy Treatment Soft Tissue Mobilization cervical spine Body Location LS, UT, paraspinals, suboccipitals, scalenes Mobilization Type Rolling,Strumming Intensity/Depth Moderate Body Position Supine Comments Trigger points at LS, UT. MWM of scalenes, LS/UT during R shoulder ABD R shoulder Body Location posterior cuff, rhomboids, periscapulars Mobilization Type Rolling,Strumming,Trigger Point Release Intensity/Depth Moderate Body Position Sidelying Comments L sidelying. Trigger points at rhomboids, thoracic paraspinals. Reduced with mobilization but still present at end of session R ankle Body Location calf, achilles Mobilization Type Instrument Assisted,Rolling, Other Intensity/Depth Moderate Body Position Prone Comments Moderate intensity using gua- sha tool. Trigger point at medial calf near achilles/ gastro interface, reduced with mobilization, tender Joint Mobilizations R ankle Joint talocrural Direction AP Grade III Reps/Duration 4x30 ea Manual Traction cervical spine Body Position Supine Reps/Duration 2x30 ea Comments with slight cervical flexion to address lower cervical spine. Reports good stretch, does not relieve symptoms but feels really good and helps PT-OP-T Assessment and Plan Start: 01/12/24 12:55 Freq: Status: Active Protocol: Document 01/25/24 09:48 SW (Rec: 01/25/24 11:20 [id number]) Physical Therapy Assessment Goals Five Impairment lifting 12# for work Short Term Goal (STG) Pt will be educated on body mechanics for lifting in order to demonstrate improved safety and posture during work STG Duration 8 weeks Mcc Goal (LTG) Pt will be able to lift > 12# from floor to overhead at least 15 times without increase in symptoms in order to demonstrate improved symptom management with job requirements LTG Duration 12 weeks Four Impairment L cervical spine rotation limited 60 deg Mcc Goal (LTG) Pt will improve L cervical spine rotation to within 5 deg of R cervical rotation for improved visual scanning LTG Duration 12 weeks Three Impairment RLE strength impaired Short Term Goal (STG) Pt will be able to perform at least 10 single leg squats B without compensation and at least 25 R heel raises without increase in symptom provocation in order to demonstrate improved symptom management for running STG Duration 8 weeks Sonoscope Operator Goal (LTG) Pt will trial jogging or running at least 2x/wk without increase in R achilles pain in order to demonstrates improved symptom management LTG Duration 12 weeks Two Impairment not performing regular strength training Short Term Goal (STG) Pt will report compliance with HEP at least 2-3x/wk in order to maximize progression with PT STG Duration 4 weeks Sonoscope Operator Goal (LTG) Pt will report compliance with HEP at least 3x/wk or initiate strengthening program to supplement training at least 2-3x/wk for maintenance LTG Duration 12 weeks One Impairment B ankle dorsiflexion limited Sonoscope Operator Goal (LTG) Pt will improve B ankle dorsiflexion to at least 8 deg in order to demonstrate improved heel cord length, longer stance phase during gait, and improved symptom management LTG Duration 12 weeks Assessment Summary Assessment Pt tolerated session well. Started session with manual therapy for decreased tension, to warm up muscles and pt comfort. Initiated shoulder and hip strengthening this session, good tolerance, no increase in symptoms. Plan to followup on pt tolerance next session, initiate TS ext/rot, split squat, and Hip IR within PT plan as able, and progress as able next session. Physical Therapy Plan Frequency and Duration Frequency of Treatment 1-2x/wk Duration of treatment (weeks) 12 Plan of Care Start Date 01/15/24 Plan of Care End Date 04/12/24 Therapeutic Interventions Therapeutic Interventions Balance Training,Gait Training ,Home Exercise Program,Joint Mobilizations,Manual Therapy, Neuromuscular Re-education, Orthotic/Prosthetic Management ,Patient/Caregiver Education, Self-Care/Home Management, Sensory Integration,Soft Tissue Mobilization,Taping, Therapeutic Activities, Therapeutic Exercises Modalities Cold Pack/Ice Massage,Electric Stimulation,Hot Packs, Ultrasound Next Visit Focus/Plan Next Note Type Treatment Note Next Visit Plan Next session: L calf stretch, R single leg heel raises w/ ankle wt vs on leg press, s/l hip abduction, split squat, s/ l hip adduction, hip IR in standing (kickstand), prone over ball ITWY, TS ext and rot POC: ankle, glute, hip, quad, core strength Manual: R ankle STM and mob, cervical/scapular, shoulder prn
--- NOTE | 2024-01-30 17:28 | PT.OTN ---
Current Diagnoses Stiffness of right shoulder, not elsewhere classified (01/30/24) Stiffness of right ankle, not elsewhere classified (01/30/24) Achilles tendinitis, unspecified leg (01/30/24) Myalgia, other site (01/30/24) Other lack of coordination (01/30/24) Weakness (01/30/24) Physical Therapy Treatment Note PT-OP-A Visit Information Start: 01/12/24 12:55 Freq: Status: Active Protocol: Document 01/30/24 14:40 SW (Rec: 01/30/24 15:25 SW [id number]) Out-Patient Physical Therapy Visit Information Visit Information Visit Type Treatment Note Visit Start Time 14:37 Visit Stop Time 15:20 Visit Number Number of INTERIOR DESIGN PROGRAM 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 Has been running, but reports that increase in training makes works. Better when resting but comes back with trianing. Reports that feels puffy, achiness, worse in am. He has had this since july. He is planning to run a race this weekend; 15 miles, planning to go slow and walk a lot. Reports that he has been doing single leg heel raise on stairs (states not great with running but ok with resting), has been been doing seated heel raises with wt; feels good during. Pt has been running off and on, states he amped up too fast which led to. He states that he has been intermittent strength training and single leg stability; states 3-4 way since injury. Pt has been weaning off of running, states has been running 2-5 mi, current mileage 2-3 days/wk, opting for rest. Prior to training, 1x/wk for 2-5 miles; when training was running 5-7 mi, 3-4 days/wk and amping up speed and distal; all trail running. Started this about 1 month before July 2023. Pt has hx of this before several times (hx of dancing which was constant, most recent in 2020 from a hike with news), stopped running for 3 months. Worse with hills, push off. Wears superfeet when running ( high arch), was wearing a new shoe when he was injured. Has tendency to want to roll it but reports pops. Was icing repetitively. Pt does a lot of hiking and back packing, reports feels good with hiking and walking up hills; reports achy but not stiff the next day. Pt reports that he had L shoulder surgery distal clavicle excision; was helping his parents move, has R shoulder blade/rhomboid pain. Worse with lifting meredith away from body, crunching, pinching with lifting up, sitting, sleeping on R shoulder; he reports rhomboid strain on R side from lifting several years ago. He reports that he has neck tightness and soreness, rolls his neck a lot . Denies injuries to neck, numbness/tingling/burning. Does not move around. Has not been doing any strengthening. Has not been doing any lifting or exericse for now. 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 PT-OP-E Functional Tests Start: 01/12/24 12:55 Freq: Status: Active Protocol: Document 01/15/24 09:00 NM (Rec: 01/15/24 10:27 NM [id number]) Functional Tests Squat Test Score 10 Comments decreased heel cord length, valgus Single Leg Squat Test Score 2 ea Comment valgus, poor hip and ankle stability Other Dorsiflexion test Name of Test in 04/18 kneel, measured 4 fingers from wall, heel on ground Score 4 cm R, 3 cm L Comment reports tightness in achilles PT-OP-F Manual Assessment Start: 01/12/24 12:55 Freq: Status: Active Protocol: Document 01/15/24 09:00 NM (Rec: 01/15/24 10:27 NM [id number]) Manual Assessments Soft Tissue Assessment Soft Tissue Mobility Assessment L medial scapular border 10 cm from spine with winging, R medial scapular border 8 cm from spine with no winging No noticeable or palpable bulge or tender spot on R Achilles Joint Mobility Assessment Joint Mobility Assessment Mild limitations in R scapular mobility, demos strong tendency for elevation; mild joint clicking Decreased R ankle talocrural and subtalar mobility, decreased midfoot mobility PT-OP-G Mobility & Gait Start: 01/12/24 12:55 Freq: Status: Active Protocol: Document 01/15/24 09:00 NM (Rec: 01/15/24 10:27 NM [id number]) OP Gait Assessment Gait Gait Assistance Required: Independent Distance (Feet) 150 Comments Gait Comments Decreased R propulsion and early heel off Mild limitations in trunk rotation with gait PT-OP-J Posture/Palpation/Skin Start: 01/12/24 12:55 Freq: Status: Active Protocol: Document 01/15/24 09:00 NM (Rec: 01/15/24 10:27 NM [id number]) Posture Evaluation Position Standing Head/C-Spine Posture Forward Head Shoulder Posture (L) Rounded,(R) Rounded Scapula Posture (L) Protracted,(R) Elevated,(L ) Winged Arm Posture (L) Internally Rotated,(R) Internally Rotated Pelvis Posture Anteriorly Tilted Foot Arch (R) High Arch,(L) Medium Arch Palpation Assessment Location R scapula Palpation Details Tightness and mild tenderness along trapezius, levator scapula, rhomboids, lat No tenderness along thoracic or cervical spine except mild tenderness at CT junction R ankle Palpation Details Mild tenderness along R achilles, no significant thickening compared to LLE PT-OP-K Range of Motion Start: 01/12/24 12:55 Freq: Status: Active Protocol: Document 01/15/24 09:00 NM (Rec: 01/15/24 10:27 NM [id number]) Cervical Spine Range of Motion Cervical Spine Active Degrees Flexion 60 Extension 60 Rotation Left 60 Rotation Right 80 Lateral Flexion Left 40 Lateral Flexion Right 45 Comments tighter on R than L, pinching w/ extension TS: 6 cm rotation, 8 deg L rotation, WFL all other directions w/o pain Shoulder Goniometric Range of Motion Shoulder Right Testing Position Sitting Flexion 140 Abduction 140 External Rotation at 90 degrees 90 Abduction Left Testing Position Sitting Flexion 150 Abduction 140 External Rotation at 90 degrees 90 Abduction Ankle and Foot Goniometric Range of Motion Ankle and Foot Right Dorsiflexion with Knee Flexed 2 Plantarflexion 40 Inversion 20 Eversion 10 Left Dorsiflexion with Knee Flexed 4 Plantarflexion 50 Inversion 30 Eversion 15 PT-OP-L Special Tests Start: 01/12/24 12:55 Freq: Status: Active Protocol: Document 01/22/24 07:29 NM (Rec: 01/22/24 08:03 NM [id number]) Special Tests Cervical Spine Special Tests Transverse Ligament Test Results - Alar Ligament Test Results - Vertebral Artery Test Results 116/77 mmHg, 63 bpm; cranial n intact, no symptoms w/ positional testing Comments carotid palpation/auscultation and heart WFL Distraction Test Results - Comments feels good but no change in symptoms Spurling's Test Test Results - Comments pinching reported at base of neck, no PT-OP-M Strength Start: 01/12/24 12:55 Freq: Status: Active Protocol: Document 01/15/24 09:00 NM (Rec: 01/15/24 10:27 NM [id number]) Cervical Spine Strength Cervical Spine Manual Muscle Testing Flexion (C1-2) 4 Good Extension 4 Good Rotation Left 4 Good Rotation Right 4 Good Lateral Flexion Left (C3) 4 Good Lateral Flexion Right (C3) 4 Good Comments No pain with resisted testing Trunk Strength Trunk Manual Muscle Testing Flexion 4 Good Extension 4 Good Rotation Left 4 Good Rotation Right 4 Good Lateral Flexion Left 4 Good Lateral Flexion Right 4 Good Comments no pain with resisted testing Shoulder Strength Shoulder Manual Muscle Testing Right Flexion 5 Normal Abduction (C5) 5 Normal External Rotation 5 Normal Internal Rotation 5 Normal Left Flexion 4+ Good+ Abduction (C5) 4+ Good+ External Rotation 4 Good Internal Rotation 4+ Good+ Comments No pain with resisted motion Hip Strength Hip Manual Muscle Testing Right Flexion (L2) 4 Good Extension (S1) 4- Good- Abduction 4- Good- Adduction 4 Good External Rotation 4 Good Internal Rotation 4- Good- Left Flexion (L2) 4 Good Extension (S1) 4 Good Abduction 4 Good Adduction 4 Good External Rotation 4 Good Internal Rotation 4 Good Knee Strength Knee Manual Muscle Testing Right Flexion (S2) 4 Good Extension (L3) 4- Good- Left Flexion (S2) 4 Good Extension (L3) 4 Good Ankle/Foot Strength Ankle and Foot Manual Muscle Testing Right Dorsiflexion (L4) 4+ Good+ Plantarflexion (S1) 4 Good Inversion 4+ Good+ Eversion (S1) 4+ Good+ Comments 16 single leg heel raise- challenging but denies pain Left Dorsiflexion (L4) 4+ Good+ Plantarflexion (S1) 4 Good Inversion 4+ Good+ Eversion (S1) 4+ Good+ Comments 22 single leg heel raises PT-OP-Q Treatments Start: 01/12/24 12:55 Freq: Status: Active Protocol: Document 01/30/24 14:40 SW (Rec: 01/30/24 15:25 [id number]) Gym Equipment Therapeutic Ball I,Y,T,W Exercise Details Shoulder strength (issued HEP w/out ball) Ball Size/Color mat with towel under forhead Body Position Prone Reps/Duration x10 ea Comments cues for cervical alignment, tactile feedback to facilitate movement, scapular winging present Therapeutic Exercises Supine Exercises thoracic ext Supine Exercise Name foam roll suboccipitals Supine Exercise Name verbal review Sidelying Exercises Hip Abd/add Sidelying Exercise Name Hip abd/add (reviewed HEP) Side bilateral Resistance AROM>Level 1 TB (Abd only) Reps/Minutes 3x10 (Abd) 3x15 add Comments cues for alignment, good mm fatigue Standing Exercises Split squat Standing Exercise Name Split squat Side bilateral Resistance AROM Calf stretch Standing Exercise Name Gastroc/soleus stretch ( reviewed HEP) Side bilateral Equipment Used Jan Reps/Minutes 2 x 60 ea Comments pt edu on mms, pain free stretch BAPS Side right Resistance level 5 Reps/Minutes 15 ea CW and CCW Comments feels good, warm up single leg heel raise Side bilateral Resistance 4# weight Equipment Used table support Reps/Minutes x10 ea Comments good tolerance PT-OP-T Assessment and Plan Start: 01/12/24 12:55 Freq: Status: Active Protocol: Document 01/30/24 14:40 SW (Rec: 01/30/24 15:25 SW [id number]) Physical Therapy Assessment Goals Five Impairment lifting 12# for work Short Term Goal (STG) Pt will be educated on body mechanics for lifting in order to demonstrate improved safety and posture during work STG Duration 8 weeks 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) Pt will be able to lift > 12# from floor to overhead at least 15 times without increase in symptoms in order to demonstrate improved symptom management with job requirements LTG Duration 12 weeks Four Impairment L cervical spine rotation limited 60 deg 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) Pt will improve L cervical spine rotation to within 5 deg of R cervical rotation for improved visual scanning LTG Duration 12 weeks Three Impairment RLE strength impaired Short Term Goal (STG) Pt will be able to perform at least 10 single leg squats B without compensation and at least 25 R heel raises without increase in symptom provocation in order to demonstrate improved symptom management for running STG Duration 8 weeks 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) Pt will trial jogging or running at least 2x/wk without increase in R achilles pain in order to demonstrates improved symptom management LTG Duration 12 weeks Two Impairment not performing regular strength training Short Term Goal (STG) Pt will report compliance with HEP at least 2-3x/wk in order to maximize progression with PT STG Duration 4 weeks 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) Pt will report compliance with HEP at least 3x/wk or initiate strengthening program to supplement training at least 2-3x/wk for maintenance LTG Duration 12 weeks One Impairment B ankle dorsiflexion limited 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) Pt will improve B ankle dorsiflexion to at least 8 deg in order to demonstrate improved heel cord length, longer stance phase during gait, and improved symptom management LTG Duration 12 weeks Assessment Summary Assessment Continued to progress strengthening exercises this session, good tolerance, issued HEP exercises pt denied HO, plan to followup next session and print out new HEP exercises for pt carryover. Pt c/o pressure felt going into plantar flexion on L foot, relieved post exercise. Plan to followup on new HEP exercises next session and progress as able. Physical Therapy Plan Frequency and Duration Frequency of Treatment 1-2x/wk Duration of treatment (weeks) 12 Plan of Care Start Date 01/15/24 Plan of Care End Date 04/12/24 Therapeutic Interventions Therapeutic Interventions Balance Training,Gait Training ,Home Exercise Program,Joint Mobilizations,Manual Therapy, Neuromuscular Re-education, Orthotic/Prosthetic Management ,Patient/Caregiver Education, Self-Care/Home Management, Sensory Integration,Soft Tissue Mobilization,Taping, Therapeutic Activities, Therapeutic Exercises Modalities Cold Pack/Ice Massage,Electric Stimulation,Hot Packs, Ultrasound Next Visit Focus/Plan Next Note Type Treatment Note Next Visit Plan Next session: L calf stretch, R single leg heel raises w/ ankle wt vs on leg press, s/l hip abduction, split squat, s/ l hip adduction, hip IR in standing (kickstand), prone over ball ITWY, TS ext and rot POC: ankle, glute, hip, quad, core strength Manual: R ankle STM and mob, cervical/scapular, shoulder prn
--- NOTE | 2024-02-07 08:23 | PT.OTN ---
Current Diagnoses Stiffness of right shoulder, not elsewhere classified (01/30/24) Stiffness of right ankle, not elsewhere classified (01/30/24) Achilles tendinitis, unspecified leg (01/30/24) Myalgia, other site (01/30/24) Other lack of coordination (01/30/24) Weakness (01/30/24) Physical Therapy Treatment Note PT-OP-A Visit Information Start: 01/12/24 12:55 Freq: Status: Active Protocol: Document 01/30/24 14:40 SW (Rec: 01/30/24 15:25 SW [id number]) Out-Patient Physical Therapy Visit Information Visit Information Visit Type Treatment Note Visit Start Time 14:37 Visit Stop Time 15:20 Visit Number Number of CURB SETTER Visits 2 Precautions Precautions Hx of L distal clavicle excision, arthritis PT-OP-B Current Condition Start: 01/12/24 12:55 Freq: Status: Active Protocol: Document 01/15/24 09:00 NM (Rec: 01/15/24 10:27 NM [id number]) Current Condition History of Current Condition Onset Date July 2023 R ankle, about 1 year ago R shoulder blade Current Complaints pain, achiness, decreased participation History of Current Condition Pt presents with R shoulder blade and R achilles pain. Has been running, but reports that increase in training makes works. Better when resting but comes back with trianing. Reports that feels puffy, achiness, worse in am. He has had this since july. He is planning to run a race this weekend; 15 miles, planning to go slow and walk a lot. Reports that he has been doing single leg heel raise on stairs (states not great with running but ok with resting), has been been doing seated heel raises with wt; feels good during. Pt has been running off and on, states he amped up too fast which led to. He states that he has been intermittent strength training and single leg stability; states 3-4 way since injury. Pt has been weaning off of running, states has been running 2-5 mi, current mileage 2-3 days/wk, opting for rest. Prior to training, 1x/wk for 2-5 miles; when training was running 5-7 mi, 3-4 days/wk and amping up speed and distal; all trail running. Started this about 1 month before July 2023. Pt has hx of this before several times (hx of dancing which was constant, most recent in 2020 from a hike with news), stopped running for 3 months. Worse with hills, push off. Wears superfeet when running ( high arch), was wearing a new shoe when he was injured. Has tendency to want to roll it but reports pops. Was icing repetitively. Pt does a lot of hiking and back packing, reports feels good with hiking and walking up hills; reports achy but not stiff the next day. Pt reports that he had L shoulder surgery distal clavicle excision; was helping his parents move, has R shoulder blade/rhomboid pain. Worse with lifting meredith away from body, crunching, pinching with lifting up, sitting, sleeping on R shoulder; he reports rhomboid strain on R side from lifting several years ago. He reports that he has neck tightness and soreness, rolls his neck a lot . Denies injuries to neck, numbness/tingling/burning. Does not move around. Has not been doing any strengthening. Has not been doing any lifting or exericse for now. 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 PT-OP-E Functional Tests Start: 01/12/24 12:55 Freq: Status: Active Protocol: Document 01/15/24 09:00 NM (Rec: 01/15/24 10:27 NM [id number]) Functional Tests Squat Test Score 10 Comments decreased heel cord length, valgus Single Leg Squat Test Score 2 ea Comment valgus, poor hip and ankle stability Other Dorsiflexion test Name of Test in 04/18 kneel, measured 4 fingers from wall, heel on ground Score 4 cm R, 3 cm L Comment reports tightness in achilles PT-OP-F Manual Assessment Start: 01/12/24 12:55 Freq: Status: Active Protocol: Document 01/15/24 09:00 NM (Rec: 01/15/24 10:27 NM [id number]) Manual Assessments Soft Tissue Assessment Soft Tissue Mobility Assessment L medial scapular border 10 cm from spine with winging, R medial scapular border 8 cm from spine with no winging No noticeable or palpable bulge or tender spot on R Achilles Joint Mobility Assessment Joint Mobility Assessment Mild limitations in R scapular mobility, demos strong tendency for elevation; mild joint clicking Decreased R ankle talocrural and subtalar mobility, decreased midfoot mobility PT-OP-G Mobility & Gait Start: 01/12/24 12:55 Freq: Status: Active Protocol: Document 01/15/24 09:00 NM (Rec: 01/15/24 10:27 NM [id number]) OP Gait Assessment Gait Gait Assistance Required: Independent Distance (Feet) 150 Comments Gait Comments Decreased R propulsion and early heel off Mild limitations in trunk rotation with gait PT-OP-J Posture/Palpation/Skin Start: 01/12/24 12:55 Freq: Status: Active Protocol: Document 01/15/24 09:00 NM (Rec: 01/15/24 10:27 NM [id number]) Posture Evaluation Position Standing Head/C-Spine Posture Forward Head Shoulder Posture (L) Rounded,(R) Rounded Scapula Posture (L) Protracted,(R) Elevated,(L ) Winged Arm Posture (L) Internally Rotated,(R) Internally Rotated Pelvis Posture Anteriorly Tilted Foot Arch (R) High Arch,(L) Medium Arch Palpation Assessment Location R scapula Palpation Details Tightness and mild tenderness along trapezius, levator scapula, rhomboids, lat No tenderness along thoracic or cervical spine except mild tenderness at CT junction R ankle Palpation Details Mild tenderness along R achilles, no significant thickening compared to LLE PT-OP-K Range of Motion Start: 01/12/24 12:55 Freq: Status: Active Protocol: Document 01/15/24 09:00 NM (Rec: 01/15/24 10:27 NM [id number]) Cervical Spine Range of Motion Cervical Spine Active Degrees Flexion 60 Extension 60 Rotation Left 60 Rotation Right 80 Lateral Flexion Left 40 Lateral Flexion Right 45 Comments tighter on R than L, pinching w/ extension TS: 6 cm rotation, 8 deg L rotation, WFL all other directions w/o pain Shoulder Goniometric Range of Motion Shoulder Right Testing Position Sitting Flexion 140 Abduction 140 External Rotation at 90 degrees 90 Abduction Left Testing Position Sitting Flexion 150 Abduction 140 External Rotation at 90 degrees 90 Abduction Ankle and Foot Goniometric Range of Motion Ankle and Foot Right Dorsiflexion with Knee Flexed 2 Plantarflexion 40 Inversion 20 Eversion 10 Left Dorsiflexion with Knee Flexed 4 Plantarflexion 50 Inversion 30 Eversion 15 PT-OP-L Special Tests Start: 01/12/24 12:55 Freq: Status: Active Protocol: Document 01/22/24 07:29 NM (Rec: 01/22/24 08:03 NM [id number]) Special Tests Cervical Spine Special Tests Transverse Ligament Test Results - Alar Ligament Test Results - Vertebral Artery Test Results 116/77 mmHg, 63 bpm; cranial n intact, no symptoms w/ positional testing Comments carotid palpation/auscultation and heart WFL Distraction Test Results - Comments feels good but no change in symptoms Spurling's Test Test Results - Comments pinching reported at base of neck, no PT-OP-M Strength Start: 01/12/24 12:55 Freq: Status: Active Protocol: Document 01/15/24 09:00 NM (Rec: 01/15/24 10:27 NM [id number]) Cervical Spine Strength Cervical Spine Manual Muscle Testing Flexion (C1-2) 4 Good Extension 4 Good Rotation Left 4 Good Rotation Right 4 Good Lateral Flexion Left (C3) 4 Good Lateral Flexion Right (C3) 4 Good Comments No pain with resisted testing Trunk Strength Trunk Manual Muscle Testing Flexion 4 Good Extension 4 Good Rotation Left 4 Good Rotation Right 4 Good Lateral Flexion Left 4 Good Lateral Flexion Right 4 Good Comments no pain with resisted testing Shoulder Strength Shoulder Manual Muscle Testing Right Flexion 5 Normal Abduction (C5) 5 Normal External Rotation 5 Normal Internal Rotation 5 Normal Left Flexion 4+ Good+ Abduction (C5) 4+ Good+ External Rotation 4 Good Internal Rotation 4+ Good+ Comments No pain with resisted motion Hip Strength Hip Manual Muscle Testing Right Flexion (L2) 4 Good Extension (S1) 4- Good- Abduction 4- Good- Adduction 4 Good External Rotation 4 Good Internal Rotation 4- Good- Left Flexion (L2) 4 Good Extension (S1) 4 Good Abduction 4 Good Adduction 4 Good External Rotation 4 Good Internal Rotation 4 Good Knee Strength Knee Manual Muscle Testing Right Flexion (S2) 4 Good Extension (L3) 4- Good- Left Flexion (S2) 4 Good Extension (L3) 4 Good Ankle/Foot Strength Ankle and Foot Manual Muscle Testing Right Dorsiflexion (L4) 4+ Good+ Plantarflexion (S1) 4 Good Inversion 4+ Good+ Eversion (S1) 4+ Good+ Comments 16 single leg heel raise- challenging but denies pain Left Dorsiflexion (L4) 4+ Good+ Plantarflexion (S1) 4 Good Inversion 4+ Good+ Eversion (S1) 4+ Good+ Comments 22 single leg heel raises PT-OP-Q Treatments Start: 01/12/24 12:55 Freq: Status: Active Protocol: Document 01/30/24 14:40 SW (Rec: 01/30/24 15:25 [id number]) Gym Equipment Therapeutic Ball I,Y,T,W Exercise Details Shoulder strength (issued HEP w/out ball) Ball Size/Color mat with towel under forhead Body Position Prone Reps/Duration x10 ea Comments cues for cervical alignment, tactile feedback to facilitate movement, scapular winging present Therapeutic Exercises Supine Exercises thoracic ext Supine Exercise Name foam roll suboccipitals Supine Exercise Name verbal review Sidelying Exercises Hip Abd/add Sidelying Exercise Name Hip abd/add (reviewed HEP) Side bilateral Resistance AROM>Level 1 TB (Abd only) Reps/Minutes 3x10 (Abd) 3x15 add Comments cues for alignment, good mm fatigue Standing Exercises Split squat Standing Exercise Name Split squat Side bilateral Resistance AROM Calf stretch Standing Exercise Name Gastroc/soleus stretch ( reviewed HEP) Side bilateral Equipment Used Jan Reps/Minutes 2 x 60 ea Comments pt edu on mms, pain free stretch BAPS Side right Resistance level 5 Reps/Minutes 15 ea CW and CCW Comments feels good, warm up single leg heel raise Side bilateral Resistance 4# weight Equipment Used table support Reps/Minutes x10 ea Comments good tolerance PT-OP-T Assessment and Plan Start: 01/12/24 12:55 Freq: Status: Active Protocol: Document 01/30/24 14:40 SW (Rec: 01/30/24 15:25 SW [id number]) Physical Therapy Assessment Goals Five Impairment lifting 12# for work Short Term Goal (STG) Pt will be educated on body mechanics for lifting in order to demonstrate improved safety and posture during work STG Duration 8 weeks Mask Inspector Goal (LTG) Pt will be able to lift > 12# from floor to overhead at least 15 times without increase in symptoms in order to demonstrate improved symptom management with job requirements LTG Duration 12 weeks Four Impairment L cervical spine rotation limited 60 deg Mask Inspector Goal (LTG) Pt will improve L cervical spine rotation to within 5 deg of R cervical rotation for improved visual scanning LTG Duration 12 weeks Three Impairment RLE strength impaired Short Term Goal (STG) Pt will be able to perform at least 10 single leg squats B without compensation and at least 25 R heel raises without increase in symptom provocation in order to demonstrate improved symptom management for running STG Duration 8 weeks Mask Inspector Goal (LTG) Pt will trial jogging or running at least 2x/wk without increase in R achilles pain in order to demonstrates improved symptom management LTG Duration 12 weeks Two Impairment not performing regular strength training Short Term Goal (STG) Pt will report compliance with HEP at least 2-3x/wk in order to maximize progression with PT STG Duration 4 weeks Mask Inspector Goal (LTG) Pt will report compliance with HEP at least 3x/wk or initiate strengthening program to supplement training at least 2-3x/wk for maintenance LTG Duration 12 weeks One Impairment B ankle dorsiflexion limited Mask Inspector Goal (LTG) Pt will improve B ankle dorsiflexion to at least 8 deg in order to demonstrate improved heel cord length, longer stance phase during gait, and improved symptom management LTG Duration 12 weeks Assessment Summary Assessment Continued to progress strengthening exercises this session, good tolerance, issued HEP exercises pt denied HO, plan to followup next session and print out new HEP exercises for pt carryover. Pt c/o pressure felt going into plantar flexion on L foot, relieved post exercise. Plan to followup on new HEP exercises next session and progress as able. Physical Therapy Plan Frequency and Duration Frequency of Treatment 1-2x/wk Duration of treatment (weeks) 12 Plan of Care Start Date 01/15/24 Plan of Care End Date 04/12/24 Therapeutic Interventions Therapeutic Interventions Balance Training,Gait Training ,Home Exercise Program,Joint Mobilizations,Manual Therapy, Neuromuscular Re-education, Orthotic/Prosthetic Management ,Patient/Caregiver Education, Self-Care/Home Management, Sensory Integration,Soft Tissue Mobilization,Taping, Therapeutic Activities, Therapeutic Exercises Modalities Cold Pack/Ice Massage,Electric Stimulation,Hot Packs, Ultrasound Next Visit Focus/Plan Next Note Type Treatment Note Next Visit Plan Next session: L calf stretch, R single leg heel raises w/ ankle wt vs on leg press, s/l hip abduction, split squat, s/ l hip adduction, hip IR in standing (kickstand), prone over ball ITWY, TS ext and rot POC: ankle, glute, hip, quad, core strength Manual: R ankle STM and mob, cervical/scapular, shoulder prn
--- NOTE | 2024-02-07 15:11 | PT.OTN ---
Current Diagnoses Stiffness of right shoulder, not elsewhere classified (02/07/24) Stiffness of right ankle, not elsewhere classified (02/07/24) Achilles tendinitis, unspecified leg (02/07/24) Myalgia, other site (02/07/24) Other lack of coordination (02/07/24) Weakness (02/07/24) Physical Therapy Treatment Note PT-OP-A Visit Information Start: 01/12/24 12:55 Freq: Status: Active Protocol: Document 02/07/24 14:27 MB (Rec: 02/07/24 15:10 MB [id number]) Out-Patient Physical Therapy Visit Information Visit Information Visit Type Treatment Note Visit Start Time 14:27 Visit Stop Time 13:07 Visit Number 5 Number of ENGINEERING DOCUMENT CONTROL CLERK Visits 0 Precautions Precautions Hx of L distal clavicle excision, arthritis PT-OP-B Current Condition Start: 01/12/24 12:55 Freq: Status: Active Protocol: Document 01/15/24 09:00 NM (Rec: 01/15/24 10:27 NM [id number]) Current Condition History of Current Condition Onset Date July 2023 R ankle, about 1 year ago R shoulder blade Current Complaints pain, achiness, decreased participation History of Current Condition Pt presents with R shoulder blade and R achilles pain. Has been running, but reports that increase in training makes works. Better when resting but comes back with trianing. Reports that feels puffy, achiness, worse in am. He has had this since july. He is planning to run a race this weekend; 15 miles, planning to go slow and walk a lot. Reports that he has been doing single leg heel raise on stairs (states not great with running but ok with resting), has been been doing seated heel raises with wt; feels good during. Pt has been running off and on, states he amped up too fast which led to. He states that he has been intermittent strength training and single leg stability; states 3-4 way since injury. Pt has been weaning off of running, states has been running 2-5 mi, current mileage 2-3 days/wk, opting for rest. Prior to training, 1x/wk for 2-5 miles; when training was running 5-7 mi, 3-4 days/wk and amping up speed and distal; all trail running. Started this about 1 month before July 2023. Pt has hx of this before several times (hx of dancing which was constant, most recent in 2020 from a hike with news), stopped running for 3 months. Worse with hills, push off. Wears superfeet when running ( high arch), was wearing a new shoe when he was injured. Has tendency to want to roll it but reports pops. Was icing repetitively. Pt does a lot of hiking and back packing, reports feels good with hiking and walking up hills; reports achy but not stiff the next day. Pt reports that he had L shoulder surgery distal clavicle excision; was helping his parents move, has R shoulder blade/rhomboid pain. Worse with lifting meredith away from body, crunching, pinching with lifting up, sitting, sleeping on R shoulder; he reports rhomboid strain on R side from lifting several years ago. He reports that he has neck tightness and soreness, rolls his neck a lot . Denies injuries to neck, numbness/tingling/burning. Does not move around. Has not been doing any strengthening. Has not been doing any lifting or exericse for now. 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 He is running about 2 miles a week. PT-OP-E Functional Tests Start: 01/12/24 12:55 Freq: Status: Active Protocol: Document 01/15/24 09:00 NM (Rec: 01/15/24 10:27 NM [id number]) Functional Tests Squat Test Score 10 Comments decreased heel cord length, valgus Single Leg Squat Test Score 2 ea Comment valgus, poor hip and ankle stability Other Dorsiflexion test Name of Test in 1/2 kneel, measured 4 fingers from wall, heel on ground Score 4 cm R, 3 cm L Comment reports tightness in achilles PT-OP-F Manual Assessment Start: 01/12/24 12:55 Freq: Status: Active Protocol: Document 01/15/24 09:00 NM (Rec: 01/15/24 10:27 NM [id number]) Manual Assessments Soft Tissue Assessment Soft Tissue Mobility Assessment L medial scapular border 10 cm from spine with winging, R medial scapular border 8 cm from spine with no winging No noticeable or palpable bulge or tender spot on R Achilles Joint Mobility Assessment Joint Mobility Assessment Mild limitations in R scapular mobility, demos strong tendency for elevation; mild joint clicking Decreased R ankle talocrural and subtalar mobility, decreased midfoot mobility PT-OP-G Mobility & Gait Start: 01/12/24 12:55 Freq: Status: Active Protocol: Document 01/15/24 09:00 NM (Rec: 01/15/24 10:27 NM [id number]) OP Gait Assessment Gait Gait Assistance Required: Independent Distance (Feet) 150 Comments Gait Comments Decreased R propulsion and early heel off Mild limitations in trunk rotation with gait PT-OP-J Posture/Palpation/Skin Start: 01/12/24 12:55 Freq: Status: Active Protocol: Document 01/15/24 09:00 NM (Rec: 01/15/24 10:27 NM [id number]) Posture Evaluation Position Standing Head/C-Spine Posture Forward Head Shoulder Posture (L) Rounded,(R) Rounded Scapula Posture (L) Protracted,(R) Elevated,(L ) Winged Arm Posture (L) Internally Rotated,(R) Internally Rotated Pelvis Posture Anteriorly Tilted Foot Arch (R) High Arch,(L) Medium Arch Palpation Assessment Location R scapula Palpation Details Tightness and mild tenderness along trapezius, levator scapula, rhomboids, lat No tenderness along thoracic or cervical spine except mild tenderness at CT junction R ankle Palpation Details Mild tenderness along R achilles, no significant thickening compared to LLE PT-OP-K Range of Motion Start: 01/12/24 12:55 Freq: Status: Active Protocol: Document 01/15/24 09:00 NM (Rec: 01/15/24 10:27 NM [id number]) Cervical Spine Range of Motion Cervical Spine Active Degrees Flexion 60 Extension 60 Rotation Left 60 Rotation Right 80 Lateral Flexion Left 40 Lateral Flexion Right 45 Comments tighter on R than L, pinching w/ extension TS: 6 cm rotation, 8 deg L rotation, WFL all other directions w/o pain Shoulder Goniometric Range of Motion Shoulder Right Testing Position Sitting Flexion 140 Abduction 140 External Rotation at 90 degrees 90 Abduction Left Testing Position Sitting Flexion 150 Abduction 140 External Rotation at 90 degrees 90 Abduction Ankle and Foot Goniometric Range of Motion Ankle and Foot Right Dorsiflexion with Knee Flexed 2 Plantarflexion 40 Inversion 20 Eversion 10 Left Dorsiflexion with Knee Flexed 4 Plantarflexion 50 Inversion 30 Eversion 15 PT-OP-L Special Tests Start: 01/12/24 12:55 Freq: Status: Active Protocol: Document 01/22/24 07:29 NM (Rec: 01/22/24 08:03 NM [id number]) Special Tests Cervical Spine Special Tests Transverse Ligament Test Results - Alar Ligament Test Results - Vertebral Artery Test Results 116/77 mmHg, 63 bpm; cranial n intact, no symptoms w/ positional testing Comments carotid palpation/auscultation and heart WFL Distraction Test Results - Comments feels good but no change in symptoms Spurling's Test Test Results - Comments pinching reported at base of neck, no PT-OP-M Strength Start: 01/12/24 12:55 Freq: Status: Active Protocol: Document 01/15/24 09:00 NM (Rec: 01/15/24 10:27 NM [id number]) Cervical Spine Strength Cervical Spine Manual Muscle Testing Flexion (C1-2) 4 Good Extension 4 Good Rotation Left 4 Good Rotation Right 4 Good Lateral Flexion Left (C3) 4 Good Lateral Flexion Right (C3) 4 Good Comments No pain with resisted testing Trunk Strength Trunk Manual Muscle Testing Flexion 4 Good Extension 4 Good Rotation Left 4 Good Rotation Right 4 Good Lateral Flexion Left 4 Good Lateral Flexion Right 4 Good Comments no pain with resisted testing Shoulder Strength Shoulder Manual Muscle Testing Right Flexion 5 Normal Abduction (C5) 5 Normal External Rotation 5 Normal Internal Rotation 5 Normal Left Flexion 4+ Good+ Abduction (C5) 4+ Good+ External Rotation 4 Good Internal Rotation 4+ Good+ Comments No pain with resisted motion Hip Strength Hip Manual Muscle Testing Right Flexion (L2) 4 Good Extension (S1) 4- Good- Abduction 4- Good- Adduction 4 Good External Rotation 4 Good Internal Rotation 4- Good- Left Flexion (L2) 4 Good Extension (S1) 4 Good Abduction 4 Good Adduction 4 Good External Rotation 4 Good Internal Rotation 4 Good Knee Strength Knee Manual Muscle Testing Right Flexion (S2) 4 Good Extension (L3) 4- Good- Left Flexion (S2) 4 Good Extension (L3) 4 Good Ankle/Foot Strength Ankle and Foot Manual Muscle Testing Right Dorsiflexion (L4) 4+ Good+ Plantarflexion (S1) 4 Good Inversion 4+ Good+ Eversion (S1) 4+ Good+ Comments 16 single leg heel raise- challenging but denies pain Left Dorsiflexion (L4) 4+ Good+ Plantarflexion (S1) 4 Good Inversion 4+ Good+ Eversion (S1) 4+ Good+ Comments 22 single leg heel raises PT-OP-Q Treatments Start: 01/12/24 12:55 Freq: Status: Active Protocol: Document 02/07/24 14:27 MB (Rec: 02/07/24 15:10 MB [id number]) Manual Therapy Treatment Consent Patient gave verbal consent for manual Yes treatment Other Other Manual Treatments Pt supine with head and legs supported: STM and positional release many muscles including PFs, plantar fascia, upper traps, levator, infraspinatus and paraspinals B, thoracic positional release B and left first rib isometric mob, TrP right levator, upper traps, infraspinatus, B fibularis longus PT-OP-T Assessment and Plan Start: 01/12/24 12:55 Freq: Status: Active Protocol: Document 02/07/24 14:27 MB (Rec: 02/07/24 15:10 MB [id number]) Physical Therapy Assessment Goals Five Impairment lifting 12# for work Short Term Goal (STG) Pt will be educated on body mechanics for lifting in order to demonstrate improved safety and posture during work STG Duration 8 weeks Senior Care Goal (LTG) Pt will be able to lift > 12# from floor to overhead at least 15 times without increase in symptoms in order to demonstrate improved symptom management with job requirements LTG Duration 12 weeks Four Impairment L cervical spine rotation limited 60 deg Entry Level Account Manager Goal (LTG) Pt will improve L cervical spine rotation to within 5 deg of R cervical rotation for improved visual scanning LTG Duration 12 weeks Three Impairment RLE strength impaired Short Term Goal (STG) Pt will be able to perform at least 10 single leg squats B without compensation and at least 25 R heel raises without increase in symptom provocation in order to demonstrate improved symptom management for running STG Duration 8 weeks Senior Care Goal (LTG) Pt will trial jogging or running at least 2x/wk without increase in R achilles pain in order to demonstrates improved symptom management LTG Duration 12 weeks Two Impairment not performing regular strength training Short Term Goal (STG) Pt will report compliance with HEP at least 2-3x/wk in order to maximize progression with PT STG Duration 4 weeks Senior Care Goal (LTG) Pt will report compliance with HEP at least 3x/wk or initiate strengthening program to supplement training at least 2-3x/wk for maintenance LTG Duration 12 weeks One Impairment B ankle dorsiflexion limited Senior Care Goal (LTG) Pt will improve B ankle dorsiflexion to at least 8 deg in order to demonstrate improved heel cord length, longer stance phase during gait, and improved symptom management LTG Duration 12 weeks Assessment Summary Assessment Pt tolerates manual therapy well and will con't to monitor . Con't per primary PT's POC. Physical Therapy Plan Frequency and Duration Frequency of Treatment 1-2x/wk Duration of treatment (weeks) 12 Plan of Care Start Date 01/15/24 Plan of Care End Date 04/12/24 Therapeutic Interventions Therapeutic Interventions Balance Training,Gait Training ,Home Exercise Program,Joint Mobilizations,Manual Therapy, Neuromuscular Re-education, Orthotic/Prosthetic Management ,Patient/Caregiver Education, Self-Care/Home Management, Sensory Integration,Soft Tissue Mobilization,Taping, Therapeutic Activities, Therapeutic Exercises Modalities Cold Pack/Ice Massage,Electric Stimulation,Hot Packs, Ultrasound Next Visit Focus/Plan Next Note Type Treatment Note Next Visit Plan Next session: L calf stretch, R single leg heel raises w/ ankle wt vs on leg press, s/l hip abduction, split squat, s/ l hip adduction, hip IR in standing (kickstand), prone over ball ITWY, TS ext and rot POC: ankle, glute, hip, quad, core strength Manual: R ankle STM and mob, cervical/scapular, shoulder prn
--- NOTE | 2024-02-09 14:11 | PT.OTN ---
Current Diagnoses Stiffness of right shoulder, not elsewhere classified (02/09/24) Stiffness of right ankle, not elsewhere classified (02/09/24) Achilles tendinitis, unspecified leg (02/09/24) Myalgia, other site (02/09/24) Other lack of coordination (02/09/24) Weakness (02/09/24) Physical Therapy Treatment Note PT-OP-A Visit Information Start: 01/12/24 12:55 Freq: Status: Active Protocol: Document 02/09/24 07:20 NM (Rec: 02/09/24 07:21 NM [id number]) Out-Patient Physical Therapy Visit Information Visit Information Visit Type Treatment Note Visit Start Time 07:30 Visit Stop Time 08:10 Visit Number 6 Evaluation Information Evaluation Date 01/15/24 Precautions Precautions Hx of L distal clavicle excision, arthritis PT-OP-B Current Condition Start: 01/12/24 12:55 Freq: Status: Active Protocol: Document 01/15/24 09:00 NM (Rec: 01/15/24 10:27 NM [id number]) Current Condition History of Current Condition Onset Date July 2023 R ankle, about 1 year ago R shoulder blade Current Complaints pain, achiness, decreased participation History of Current Condition Pt presents with R shoulder blade and R achilles pain. Has been running, but reports that increase in training makes works. Better when resting but comes back with trianing. Reports that feels puffy, achiness, worse in am. He has had this since july. He is planning to run a race this weekend; 15 miles, planning to go slow and walk a lot. Reports that he has been doing single leg heel raise on stairs (states not great with running but ok with resting), has been been doing seated heel raises with wt; feels good during. Pt has been running off and on, states he amped up too fast which led to. He states that he has been intermittent strength training and single leg stability; states 3-4 way since injury. Pt has been weaning off of running, states has been running 2-5 mi, current mileage 2-3 days/wk, opting for rest. Prior to training, 1x/wk for 2-5 miles; when training was running 5-7 mi, 3-4 days/wk and amping up speed and distal; all trail running. Started this about 1 month before July 2023. Pt has hx of this before several times (hx of dancing which was constant, most recent in 2020 from a hike with news), stopped running for 3 months. Worse with hills, push off. Wears superfeet when running ( high arch), was wearing a new shoe when he was injured. Has tendency to want to roll it but reports pops. Was icing repetitively. Pt does a lot of hiking and back packing, reports feels good with hiking and walking up hills; reports achy but not stiff the next day. Pt reports that he had L shoulder surgery distal clavicle excision; was helping his parents move, has R shoulder blade/rhomboid pain. Worse with lifting meredith away from body, crunching, pinching with lifting up, sitting, sleeping on R shoulder; he reports rhomboid strain on R side from lifting several years ago. He reports that he has neck tightness and soreness, rolls his neck a lot . Denies injuries to neck, numbness/tingling/burning. Does not move around. Has not been doing any strengthening. Has not been doing any lifting or exericse for now. 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 He was pretty sore. Shoulder has been bothering him more than achilles. Has been running less, which helps his achilles. He has been doing arm raises on ground, bothers the front of his shoulder. He states 3/10 R shoulder. He went fishing yesterday. Reports sharp pain with breathing, decreased lung capacity. PT-OP-E Functional Tests Start: 01/12/24 12:55 Freq: Status: Active Protocol: Document 01/15/24 09:00 NM (Rec: 01/15/24 10:27 NM [id number]) Functional Tests Squat Test Score 10 Comments decreased heel cord length, valgus Single Leg Squat Test Score 2 ea Comment valgus, poor hip and ankle stability Other Dorsiflexion test Name of Test in 1/2 kneel, measured 4 fingers from wall, heel on ground Score 4 cm R, 3 cm L Comment reports tightness in achilles PT-OP-F Manual Assessment Start: 01/12/24 12:55 Freq: Status: Active Protocol: Document 01/15/24 09:00 NM (Rec: 01/15/24 10:27 NM [id number]) Manual Assessments Soft Tissue Assessment Soft Tissue Mobility Assessment L medial scapular border 10 cm from spine with winging, R medial scapular border 8 cm from spine with no winging No noticeable or palpable bulge or tender spot on R Achilles Joint Mobility Assessment Joint Mobility Assessment Mild limitations in R scapular mobility, demos strong tendency for elevation; mild joint clicking Decreased R ankle talocrural and subtalar mobility, decreased midfoot mobility PT-OP-G Mobility & Gait Start: 01/12/24 12:55 Freq: Status: Active Protocol: Document 01/15/24 09:00 NM (Rec: 01/15/24 10:27 NM [id number]) OP Gait Assessment Gait Gait Assistance Required: Independent Distance (Feet) 150 Comments Gait Comments Decreased R propulsion and early heel off Mild limitations in trunk rotation with gait PT-OP-J Posture/Palpation/Skin Start: 01/12/24 12:55 Freq: Status: Active Protocol: Document 01/15/24 09:00 NM (Rec: 01/15/24 10:27 NM [id number]) Posture Evaluation Position Standing Head/C-Spine Posture Forward Head Shoulder Posture (L) Rounded,(R) Rounded Scapula Posture (L) Protracted,(R) Elevated,(L ) Winged Arm Posture (L) Internally Rotated,(R) Internally Rotated Pelvis Posture Anteriorly Tilted Foot Arch (R) High Arch,(L) Medium Arch Palpation Assessment Location R scapula Palpation Details Tightness and mild tenderness along trapezius, levator scapula, rhomboids, lat No tenderness along thoracic or cervical spine except mild tenderness at CT junction R ankle Palpation Details Mild tenderness along R achilles, no significant thickening compared to LLE PT-OP-K Range of Motion Start: 01/12/24 12:55 Freq: Status: Active Protocol: Document 01/15/24 09:00 NM (Rec: 01/15/24 10:27 NM [id number]) Cervical Spine Range of Motion Cervical Spine Active Degrees Flexion 60 Extension 60 Rotation Left 60 Rotation Right 80 Lateral Flexion Left 40 Lateral Flexion Right 45 Comments tighter on R than L, pinching w/ extension TS: 6 cm rotation, 8 deg L rotation, WFL all other directions w/o pain Shoulder Goniometric Range of Motion Shoulder Right Testing Position Sitting Flexion 140 Abduction 140 External Rotation at 90 degrees 90 Abduction Left Testing Position Sitting Flexion 150 Abduction 140 External Rotation at 90 degrees 90 Abduction Ankle and Foot Goniometric Range of Motion Ankle and Foot Right Dorsiflexion with Knee Flexed 2 Plantarflexion 40 Inversion 20 Eversion 10 Left Dorsiflexion with Knee Flexed 4 Plantarflexion 50 Inversion 30 Eversion 15 PT-OP-L Special Tests Start: 01/12/24 12:55 Freq: Status: Active Protocol: Document 01/22/24 07:29 NM (Rec: 01/22/24 08:03 NM [id number]) Special Tests Cervical Spine Special Tests Transverse Ligament Test Results - Alar Ligament Test Results - Vertebral Artery Test Results 116/77 mmHg, 63 bpm; cranial n intact, no symptoms w/ positional testing Comments carotid palpation/auscultation and heart WFL Distraction Test Results - Comments feels good but no change in symptoms Spurling's Test Test Results - Comments pinching reported at base of neck, no PT-OP-M Strength Start: 01/12/24 12:55 Freq: Status: Active Protocol: Document 01/15/24 09:00 NM (Rec: 01/15/24 10:27 NM [id number]) Cervical Spine Strength Cervical Spine Manual Muscle Testing Flexion (C1-2) 4 Good Extension 4 Good Rotation Left 4 Good Rotation Right 4 Good Lateral Flexion Left (C3) 4 Good Lateral Flexion Right (C3) 4 Good Comments No pain with resisted testing Trunk Strength Trunk Manual Muscle Testing Flexion 4 Good Extension 4 Good Rotation Left 4 Good Rotation Right 4 Good Lateral Flexion Left 4 Good Lateral Flexion Right 4 Good Comments no pain with resisted testing Shoulder Strength Shoulder Manual Muscle Testing Right Flexion 5 Normal Abduction (C5) 5 Normal External Rotation 5 Normal Internal Rotation 5 Normal Left Flexion 4+ Good+ Abduction (C5) 4+ Good+ External Rotation 4 Good Internal Rotation 4+ Good+ Comments No pain with resisted motion Hip Strength Hip Manual Muscle Testing Right Flexion (L2) 4 Good Extension (S1) 4- Good- Abduction 4- Good- Adduction 4 Good External Rotation 4 Good Internal Rotation 4- Good- Left Flexion (L2) 4 Good Extension (S1) 4 Good Abduction 4 Good Adduction 4 Good External Rotation 4 Good Internal Rotation 4 Good Knee Strength Knee Manual Muscle Testing Right Flexion (S2) 4 Good Extension (L3) 4- Good- Left Flexion (S2) 4 Good Extension (L3) 4 Good Ankle/Foot Strength Ankle and Foot Manual Muscle Testing Right Dorsiflexion (L4) 4+ Good+ Plantarflexion (S1) 4 Good Inversion 4+ Good+ Eversion (S1) 4+ Good+ Comments 16 single leg heel raise- challenging but denies pain Left Dorsiflexion (L4) 4+ Good+ Plantarflexion (S1) 4 Good Inversion 4+ Good+ Eversion (S1) 4+ Good+ Comments 22 single leg heel raises PT-OP-Q Treatments Start: 01/12/24 12:55 Freq: Status: Active Protocol: Document 02/09/24 07:20 NM (Rec: 02/09/24 07:21 NM [id number]) Therapeutic Exercises Supine Exercises foam roller Supine Exercise Name 1. HABD, 2. diagonals, 3. cervical retraction Side bilateral Resistance level 1 band > level 2 band Reps/Minutes 15 ea thoracic ext Supine Exercise Name with pull aparts Side bilateral Resistance level 1 band Equipment Used foam roller Reps/Minutes 15 w/ 1-2 hold at end range Comments reports stretch in midback which feels good; cued neutral spine Standing Exercises serratus anterior Standing Exercise Name 1. incline plank press up on wall, 2. serratus wall slides w/ band Side bilateral Reps/Minutes 1. 15, 2. 10 Comments cued //hand position Manual Therapy Treatment Consent Patient gave verbal consent for manual Yes treatment Soft Tissue Mobilization cervical spine Body Location LS, UT, paraspinals, suboccipitals, scalenes Mobilization Type Rolling,Strumming Intensity/Depth Moderate Body Position Supine Comments Fewer trigger point and tightness today R>L R shoulder Body Location posterior cuff, rhomboids, periscapulars Mobilization Type Rolling,Strumming,Trigger Point Release Intensity/Depth Moderate Body Position Sidelying Comments L sidelying. Fewer trigger points and tightness on R side . Demos scapular winging, tenderness near rhomboids/ serratus Joint Mobilizations scapulothoracic Joint R Direction elevation/depression, protraction/retraction Grade III Body Position Sidelying Reps/Duration 20 Comments Demos scapular winging PT-OP-T Assessment and Plan Start: 01/12/24 12:55 Freq: Status: Active Protocol: Document 02/09/24 07:20 NM (Rec: 02/09/24 07:21 NM [id number]) Physical Therapy Assessment Goals Five Impairment lifting 12# for work Short Term Goal (STG) Pt will be educated on body mechanics for lifting in order to demonstrate improved safety and posture during work STG Duration 8 weeks Penitentiary Goal (LTG) Pt will be able to lift > 12# from floor to overhead at least 15 times without increase in symptoms in order to demonstrate improved symptom management with job requirements LTG Duration 12 weeks Four Impairment L cervical spine rotation limited 60 deg Penitentiary Goal (LTG) Pt will improve L cervical spine rotation to within 5 deg of R cervical rotation for improved visual scanning LTG Duration 12 weeks Three Impairment RLE strength impaired Short Term Goal (STG) Pt will be able to perform at least 10 single leg squats B without compensation and at least 25 R heel raises without increase in symptom provocation in order to demonstrate improved symptom management for running STG Duration 8 weeks Stage Set Designer Goal (LTG) Pt will trial jogging or running at least 2x/wk without increase in R achilles pain in order to demonstrates improved symptom management LTG Duration 12 weeks Two Impairment not performing regular strength training Short Term Goal (STG) Pt will report compliance with HEP at least 2-3x/wk in order to maximize progression with PT STG Duration 4 weeks Penitentiary Goal (LTG) Pt will report compliance with HEP at least 3x/wk or initiate strengthening program to supplement training at least 2-3x/wk for maintenance LTG Duration 12 weeks One Impairment B ankle dorsiflexion limited Penitentiary Goal (LTG) Pt will improve B ankle dorsiflexion to at least 8 deg in order to demonstrate improved heel cord length, longer stance phase during gait, and improved symptom management LTG Duration 12 weeks Assessment Summary Assessment Pt responds well to serratus anterior activation today at wall, demos winging at scapula , reduced with activation. Better response to scapular strengthening on foam roller with band, retrialed prone exercises; pt has no pain in scapular with prone exercises following foam roller exercises. Cueing for neutral spine position for chin tucks and with serratus press at wall to limit trunk or neck extension. Pt reports no shoulder pain following session. He would benefit from skilled PT for progressive scapular activation and proximal strengthening in order to improve symptom management and ability to perform lifting ADLs. Physical Therapy Plan Frequency and Duration Frequency of Treatment 1-2x/wk Duration of treatment (weeks) 12 Plan of Care Start Date 01/15/24 Plan of Care End Date 04/12/24 Therapeutic Interventions Therapeutic Interventions Balance Training,Gait Training ,Home Exercise Program,Joint Mobilizations,Manual Therapy, Neuromuscular Re-education, Orthotic/Prosthetic Management ,Patient/Caregiver Education, Self-Care/Home Management, Sensory Integration,Soft Tissue Mobilization,Taping, Therapeutic Activities, Therapeutic Exercises Modalities Cold Pack/Ice Massage,Electric Stimulation,Hot Packs, Ultrasound Next Visit Focus/Plan Next Note Type Treatment Note Next Visit Plan Continue and progress serratus strengthening. Review foam roller: progress band resistance, trial chest press on roller w/ low DB. 1/2 kneel open book (add band if able). In supine or seated: cervical retraction (Add band if seated). Trial PNF w/ band from 1/2 kneel. For ankle- rear elevated split squat vs single leg squat, SL heel raise on step vs front elevated), add soleus raise; glute med squat at wall vs standing clam POC: ankle, glute, hip, quad, core strength Manual: R ankle STM and mob, cervical/scapular, shoulder prn
--- NOTE | 2024-02-13 16:53 | PT.OTN ---
Current Diagnoses Stiffness of right shoulder, not elsewhere classified (02/13/24) Stiffness of right ankle, not elsewhere classified (02/13/24) Achilles tendinitis, unspecified leg (02/13/24) Myalgia, other site (02/13/24) Other lack of coordination (02/13/24) Weakness (02/13/24) Physical Therapy Treatment Note PT-OP-A Visit Information Start: 01/12/24 12:55 Freq: Status: Active Protocol: Document 02/13/24 09:48 SW (Rec: 02/13/24 10:39 SW [id number]) Out-Patient Physical Therapy Visit Information Visit Information Visit Type Treatment Note Visit Start Time 09:45 Visit Stop Time 10:25 Visit Number 7 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 Has been running, but reports that increase in training makes works. Better when resting but comes back with trianing. Reports that feels puffy, achiness, worse in am. He has had this since july. He is planning to run a race this weekend; 15 miles, planning to go slow and walk a lot. Reports that he has been doing single leg heel raise on stairs (states not great with running but ok with resting), has been been doing seated heel raises with wt; feels good during. Pt has been running off and on, states he amped up too fast which led to. He states that he has been intermittent strength training and single leg stability; states 3-4 way since injury. Pt has been weaning off of running, states has been running 2-5 mi, current mileage 2-3 days/wk, opting for rest. Prior to training, 1x/wk for 2-5 miles; when training was running 5-7 mi, 3-4 days/wk and amping up speed and distal; all trail running. Started this about 1 month before July 2023. Pt has hx of this before several times (hx of dancing which was constant, most recent in 2020 from a hike with news), stopped running for 3 months. Worse with hills, push off. Wears superfeet when running ( high arch), was wearing a new shoe when he was injured. Has tendency to want to roll it but reports pops. Was icing repetitively. Pt does a lot of hiking and back packing, reports feels good with hiking and walking up hills; reports achy but not stiff the next day. Pt reports that he had L shoulder surgery distal clavicle excision; was helping his parents move, has R shoulder blade/rhomboid pain. Worse with lifting meredith away from body, crunching, pinching with lifting up, sitting, sleeping on R shoulder; he reports rhomboid strain on R side from lifting several years ago. He reports that he has neck tightness and soreness, rolls his neck a lot . Denies injuries to neck, numbness/tingling/burning. Does not move around. Has not been doing any strengthening. Has not been doing any lifting or exericse for now. 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 Pt reports went on a run, still had same stiffness and pain consistant with prior symptoms , lasted that day and felt better after waking up. PT-OP-E Functional Tests Start: 01/12/24 12:55 Freq: Status: Active Protocol: Document 01/15/24 09:00 NM (Rec: 01/15/24 10:27 NM [id number]) Functional Tests Squat Test Score 10 Comments decreased heel cord length, valgus Single Leg Squat Test Score 2 ea Comment valgus, poor hip and ankle stability Other Dorsiflexion test Name of Test in 04/18 kneel, measured 4 fingers from wall, heel on ground Score 4 cm R, 3 cm L Comment reports tightness in achilles PT-OP-F Manual Assessment Start: 01/12/24 12:55 Freq: Status: Active Protocol: Document 01/15/24 09:00 NM (Rec: 01/15/24 10:27 NM [id number]) Manual Assessments Soft Tissue Assessment Soft Tissue Mobility Assessment L medial scapular border 10 cm from spine with winging, R medial scapular border 8 cm from spine with no winging No noticeable or palpable bulge or tender spot on R Achilles Joint Mobility Assessment Joint Mobility Assessment Mild limitations in R scapular mobility, demos strong tendency for elevation; mild joint clicking Decreased R ankle talocrural and subtalar mobility, decreased midfoot mobility PT-OP-G Mobility & Gait Start: 01/12/24 12:55 Freq: Status: Active Protocol: Document 01/15/24 09:00 NM (Rec: 01/15/24 10:27 NM [id number]) OP Gait Assessment Gait Gait Assistance Required: Independent Distance (Feet) 150 Comments Gait Comments Decreased R propulsion and early heel off Mild limitations in trunk rotation with gait PT-OP-J Posture/Palpation/Skin Start: 01/12/24 12:55 Freq: Status: Active Protocol: Document 01/15/24 09:00 NM (Rec: 01/15/24 10:27 NM [id number]) Posture Evaluation Position Standing Head/C-Spine Posture Forward Head Shoulder Posture (L) Rounded,(R) Rounded Scapula Posture (L) Protracted,(R) Elevated,(L ) Winged Arm Posture (L) Internally Rotated,(R) Internally Rotated Pelvis Posture Anteriorly Tilted Foot Arch (R) High Arch,(L) Medium Arch Palpation Assessment Location R scapula Palpation Details Tightness and mild tenderness along trapezius, levator scapula, rhomboids, lat No tenderness along thoracic or cervical spine except mild tenderness at CT junction R ankle Palpation Details Mild tenderness along R achilles, no significant thickening compared to LLE PT-OP-K Range of Motion Start: 01/12/24 12:55 Freq: Status: Active Protocol: Document 01/15/24 09:00 NM (Rec: 01/15/24 10:27 NM [id number]) Cervical Spine Range of Motion Cervical Spine Active Degrees Flexion 60 Extension 60 Rotation Left 60 Rotation Right 80 Lateral Flexion Left 40 Lateral Flexion Right 45 Comments tighter on R than L, pinching w/ extension TS: 6 cm rotation, 8 deg L rotation, WFL all other directions w/o pain Shoulder Goniometric Range of Motion Shoulder Right Testing Position Sitting Flexion 140 Abduction 140 External Rotation at 90 degrees 90 Abduction Left Testing Position Sitting Flexion 150 Abduction 140 External Rotation at 90 degrees 90 Abduction Ankle and Foot Goniometric Range of Motion Ankle and Foot Right Dorsiflexion with Knee Flexed 2 Plantarflexion 40 Inversion 20 Eversion 10 Left Dorsiflexion with Knee Flexed 4 Plantarflexion 50 Inversion 30 Eversion 15 PT-OP-L Special Tests Start: 01/12/24 12:55 Freq: Status: Active Protocol: Document 01/22/24 07:29 NM (Rec: 01/22/24 08:03 NM [id number]) Special Tests Cervical Spine Special Tests Transverse Ligament Test Results - Alar Ligament Test Results - Vertebral Artery Test Results 116/77 mmHg, 63 bpm; cranial n intact, no symptoms w/ positional testing Comments carotid palpation/auscultation and heart WFL Distraction Test Results - Comments feels good but no change in symptoms Spurling's Test Test Results - Comments pinching reported at base of neck, no PT-OP-M Strength Start: 01/12/24 12:55 Freq: Status: Active Protocol: Document 01/15/24 09:00 NM (Rec: 01/15/24 10:27 NM [id number]) Cervical Spine Strength Cervical Spine Manual Muscle Testing Flexion (C1-2) 4 Good Extension 4 Good Rotation Left 4 Good Rotation Right 4 Good Lateral Flexion Left (C3) 4 Good Lateral Flexion Right (C3) 4 Good Comments No pain with resisted testing Trunk Strength Trunk Manual Muscle Testing Flexion 4 Good Extension 4 Good Rotation Left 4 Good Rotation Right 4 Good Lateral Flexion Left 4 Good Lateral Flexion Right 4 Good Comments no pain with resisted testing Shoulder Strength Shoulder Manual Muscle Testing Right Flexion 5 Normal Abduction (C5) 5 Normal External Rotation 5 Normal Internal Rotation 5 Normal Left Flexion 4+ Good+ Abduction (C5) 4+ Good+ External Rotation 4 Good Internal Rotation 4+ Good+ Comments No pain with resisted motion Hip Strength Hip Manual Muscle Testing Right Flexion (L2) 4 Good Extension (S1) 4- Good- Abduction 4- Good- Adduction 4 Good External Rotation 4 Good Internal Rotation 4- Good- Left Flexion (L2) 4 Good Extension (S1) 4 Good Abduction 4 Good Adduction 4 Good External Rotation 4 Good Internal Rotation 4 Good Knee Strength Knee Manual Muscle Testing Right Flexion (S2) 4 Good Extension (L3) 4- Good- Left Flexion (S2) 4 Good Extension (L3) 4 Good Ankle/Foot Strength Ankle and Foot Manual Muscle Testing Right Dorsiflexion (L4) 4+ Good+ Plantarflexion (S1) 4 Good Inversion 4+ Good+ Eversion (S1) 4+ Good+ Comments 16 single leg heel raise- challenging but denies pain Left Dorsiflexion (L4) 4+ Good+ Plantarflexion (S1) 4 Good Inversion 4+ Good+ Eversion (S1) 4+ Good+ Comments 22 single leg heel raises PT-OP-Q Treatments Start: 01/12/24 12:55 Freq: Status: Active Protocol: Document 02/13/24 09:48 SW (Rec: 02/13/24 10:39 [id number]) Therapeutic Exercises Supine Exercises foam roller Supine Exercise Name 1. HABD, 2. diagonals, 3. cervical retraction 4. Chest press (HEP issued) Side bilateral Resistance level 2 band, 4. 2#>5#DB chest press Reps/Minutes 2x15 ea thoracic ext Supine Exercise Name Thoracic extension Side bilateral Equipment Used foam roller horizontal, cervical support w/ UE Reps/Minutes x30 various levels of thoracic spine Comments feels good Standing Exercises Heel Raises Standing Exercise Name soleus heel raise (HEP issued) Equipment Used @ rail for support prn Reps/Minutes 2 x 10 Comments pt education on mms serratus anterior Standing Exercise Name 1. incline plank press up on wall, 2. serratus wall slides w/ band Side bilateral Equipment Used 2.lvl 2 band Reps/Minutes 1. 15, 2. 10 Comments cued //hand position, pt quick to fatigue with serratus wall slides Other Exercises Open Book Other Exercise Name 1/2 kneel 1. ROM 2.Strenth w/ resistance (HEP issued) Side bilateral Resistance 1. AROM 2. Lvl 1 band Reps/Minutes x10 ea Comments cues for postural alignment with exercise PT-OP-T Assessment and Plan Start: 01/12/24 12:55 Freq: Status: Active Protocol: Document 02/13/24 09:48 SW (Rec: 02/13/24 10:39 [id number]) Physical Therapy Assessment Goals Five Impairment lifting 12# for work Short Term Goal (STG) Pt will be educated on body mechanics for lifting in order to demonstrate improved safety and posture during work STG Duration 8 weeks Group Home Goal (LTG) Pt will be able to lift > 12# from floor to overhead at least 15 times without increase in symptoms in order to demonstrate improved symptom management with job requirements LTG Duration 12 weeks Four Impairment L cervical spine rotation limited 60 deg Group Home Goal (LTG) Pt will improve L cervical spine rotation to within 5 deg of R cervical rotation for improved visual scanning LTG Duration 12 weeks Three Impairment RLE strength impaired Short Term Goal (STG) Pt will be able to perform at least 10 single leg squats B without compensation and at least 25 R heel raises without increase in symptom provocation in order to demonstrate improved symptom management for running STG Duration 8 weeks Group Home Goal (LTG) Pt will trial jogging or running at least 2x/wk without increase in R achilles pain in order to demonstrates improved symptom management LTG Duration 12 weeks Two Impairment not performing regular strength training Short Term Goal (STG) Pt will report compliance with HEP at least 2-3x/wk in order to maximize progression with PT STG Duration 4 weeks Group Home Goal (LTG) Pt will report compliance with HEP at least 3x/wk or initiate strengthening program to supplement training at least 2-3x/wk for maintenance LTG Duration 12 weeks One Impairment B ankle dorsiflexion limited Group Home Goal (LTG) Pt will improve B ankle dorsiflexion to at least 8 deg in order to demonstrate improved heel cord length, longer stance phase during gait, and improved symptom management LTG Duration 12 weeks Assessment Summary Assessment Pt tolerated session well, no increase in symptoms throughout session today. Pt feeling better today than previous session, pt agreed to decline manual work this session and focus on ther exercises today. Progressed pt exercises today, plan to followup on pt tolerance next session, review prn and progress as tolerated. Physical Therapy Plan Frequency and Duration Frequency of Treatment 1-2x/wk Duration of treatment (weeks) 12 Plan of Care Start Date 01/15/24 Plan of Care End Date 04/12/24 Therapeutic Interventions Therapeutic Interventions Balance Training,Gait Training ,Home Exercise Program,Joint Mobilizations,Manual Therapy, Neuromuscular Re-education, Orthotic/Prosthetic Management ,Patient/Caregiver Education, Self-Care/Home Management, Sensory Integration,Soft Tissue Mobilization,Taping, Therapeutic Activities, Therapeutic Exercises Modalities Cold Pack/Ice Massage,Electric Stimulation,Hot Packs, Ultrasound Next Visit Focus/Plan Next Note Type Treatment Note Next Visit Plan Continue and progress serratus strengthening. Review foam roller: progress band resistance, trial chest press on roller w/ low DB. 1/2 kneel open book (add band if able). In supine or seated: cervical retraction (Add band if seated). Trial PNF w/ band from 2 kneel. For ankle- rear elevated split squat vs single leg squat, SL heel raise on step vs front elevated), add soleus raise; glute med squat at wall vs standing clam POC: ankle, glute, hip, quad, core strength Manual: R ankle STM and mob, cervical/scapular, shoulder prn
--- NOTE | 2024-03-04 15:55 | PT-OP ANOTE ---
PT called and left VM for pt to follow up about cancellations and no longer has insurance authorization. PT asked pt to call PT. Due to pt cancellations, has not been compliant with attendance policy and will be discharged due to (1) no auth for insurance and (2) non-compliance with attendance policy w/ last minute cancellations.
--- NOTE | 2024-03-18 07:55 | PT.OPDS ---
Current Diagnoses Stiffness of right shoulder, not elsewhere classified (02/13/24) Stiffness of right ankle, not elsewhere classified (02/13/24) Achilles tendinitis, unspecified leg (02/13/24) Myalgia, other site (02/13/24) Other lack of coordination (02/13/24) Weakness (02/13/24) Visit Care Team Role Provider Type Tonya Hernandez DO Attending Provider Physician Family Provider Primary Care Provider Referring Provider Specialty: Family Practice Address: [address] [place] [address], [address], [id number] Email: [email or web address] Visit Number Visit Number 7 Discharge Summary PT-OP-B Current Condition Start: 01/12/24 12:55 Freq: Status: Active Protocol: Document 01/15/24 09:00 NM (Rec: 01/15/24 10:27 NM [id number]) Current Condition History of Current Condition Onset Date July 2023 R ankle, about 1 year ago R shoulder blade Current Complaints pain, achiness, decreased participation History of Current Condition Pt presents with R shoulder blade and R achilles pain. Has been running, but reports that increase in training makes works. Better when resting but comes back with trianing. Reports that feels puffy, achiness, worse in am. He has had this since july. He is planning to run a race this weekend; 15 miles, planning to go slow and walk a lot. Reports that he has been doing single leg heel raise on stairs (states not great with running but ok with resting), has been been doing seated heel raises with wt; feels good during. Pt has been running off and on, states he amped up too fast which led to. He states that he has been intermittent strength training and single leg stability; states 3-4 way since injury. Pt has been weaning off of running, states has been running 2-5 mi, current mileage 2-3 days/wk, opting for rest. Prior to training, 1x/wk for 2-5 miles; when training was running 5-7 mi, 3-4 days/wk and amping up speed and distal; all trail running. Started this about 1 month before July 2023. Pt has hx of this before several times (hx of dancing which was constant, most recent in 2020 from a hike with news), stopped running for 3 months. Worse with hills, push off. Wears superfeet when running ( high arch), was wearing a new shoe when he was injured. Has tendency to want to roll it but reports pops. Was icing repetitively. Pt does a lot of hiking and back packing, reports feels good with hiking and walking up hills; reports achy but not stiff the next day. Pt reports that he had L shoulder surgery distal clavicle excision; was helping his parents move, has R shoulder blade/rhomboid pain. Worse with lifting meredith away from body, crunching, pinching with lifting up, sitting, sleeping on R shoulder; he reports rhomboid strain on R side from lifting several years ago. He reports that he has neck tightness and soreness, rolls his neck a lot . Denies injuries to neck, numbness/tingling/burning. Does not move around. Has not been doing any strengthening. Has not been doing any lifting or exericse for now. 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 Pt reports went on a run, still had same stiffness and pain consistant with prior symptoms , lasted that day and felt better after waking up. PT-OP-E Functional Tests Start: 01/12/24 12:55 Freq: Status: Active Protocol: Document 01/15/24 09:00 NM (Rec: 01/15/24 10:27 NM [id number]) Functional Tests Squat Test Score 10 Comments decreased heel cord length, valgus Single Leg Squat Test Score 2 ea Comment valgus, poor hip and ankle stability Other Dorsiflexion test Name of Test in 04/18 kneel, measured 4 fingers from wall, heel on ground Score 4 cm R, 3 cm L Comment reports tightness in achilles PT-OP-F Manual Assessment Start: 01/12/24 12:55 Freq: Status: Active Protocol: Document 01/15/24 09:00 NM (Rec: 01/15/24 10:27 NM [id number]) Manual Assessments Soft Tissue Assessment Soft Tissue Mobility Assessment L medial scapular border 10 cm from spine with winging, R medial scapular border 8 cm from spine with no winging No noticeable or palpable bulge or tender spot on R Achilles Joint Mobility Assessment Joint Mobility Assessment Mild limitations in R scapular mobility, demos strong tendency for elevation; mild joint clicking Decreased R ankle talocrural and subtalar mobility, decreased midfoot mobility PT-OP-G Mobility & Gait Start: 01/12/24 12:55 Freq: Status: Active Protocol: Document 01/15/24 09:00 NM (Rec: 01/15/24 10:27 NM [id number]) OP Gait Assessment Gait Gait Assistance Required: Independent Distance (Feet) 150 Comments Gait Comments Decreased R propulsion and early heel off Mild limitations in trunk rotation with gait PT-OP-J Posture/Palpation/Skin Start: 01/12/24 12:55 Freq: Status: Active Protocol: Document 01/15/24 09:00 NM (Rec: 01/15/24 10:27 NM [id number]) Posture Evaluation Position Standing Head/C-Spine Posture Forward Head Shoulder Posture (L) Rounded,(R) Rounded Scapula Posture (L) Protracted,(R) Elevated,(L ) Winged Arm Posture (L) Internally Rotated,(R) Internally Rotated Pelvis Posture Anteriorly Tilted Foot Arch (R) High Arch,(L) Medium Arch Palpation Assessment Location R scapula Palpation Details Tightness and mild tenderness along trapezius, levator scapula, rhomboids, lat No tenderness along thoracic or cervical spine except mild tenderness at CT junction R ankle Palpation Details Mild tenderness along R achilles, no significant thickening compared to LLE PT-OP-K Range of Motion Start: 01/12/24 12:55 Freq: Status: Active Protocol: Document 01/15/24 09:00 NM (Rec: 01/15/24 10:27 NM [id number]) Cervical Spine Range of Motion Cervical Spine Active Degrees Flexion 60 Extension 60 Rotation Left 60 Rotation Right 80 Lateral Flexion Left 40 Lateral Flexion Right 45 Comments tighter on R than L, pinching w/ extension TS: 6 cm rotation, 8 deg L rotation, WFL all other directions w/o pain Shoulder Goniometric Range of Motion Shoulder Right Testing Position Sitting Flexion 140 Abduction 140 External Rotation at 90 degrees 90 Abduction Left Testing Position Sitting Flexion 150 Abduction 140 External Rotation at 90 degrees 90 Abduction Ankle and Foot Goniometric Range of Motion Ankle and Foot Right Dorsiflexion with Knee Flexed 2 Plantarflexion 40 Inversion 20 Eversion 10 Left Dorsiflexion with Knee Flexed 4 Plantarflexion 50 Inversion 30 Eversion 15 PT-OP-L Special Tests Start: 01/12/24 12:55 Freq: Status: Active Protocol: Document 01/22/24 07:29 NM (Rec: 01/22/24 08:03 NM [id number]) Special Tests Cervical Spine Special Tests Transverse Ligament Test Results - Alar Ligament Test Results - Vertebral Artery Test Results 116/77 mmHg, 63 bpm; cranial n intact, no symptoms w/ positional testing Comments carotid palpation/auscultation and heart WFL Distraction Test Results - Comments feels good but no change in symptoms Spurling's Test Test Results - Comments pinching reported at base of neck, no PT-OP-M Strength Start: 01/12/24 12:55 Freq: Status: Active Protocol: Document 01/15/24 09:00 NM (Rec: 01/15/24 10:27 NM [id number]) Cervical Spine Strength Cervical Spine Manual Muscle Testing Flexion (C1-2) 4 Good Extension 4 Good Rotation Left 4 Good Rotation Right 4 Good Lateral Flexion Left (C3) 4 Good Lateral Flexion Right (C3) 4 Good Comments No pain with resisted testing Trunk Strength Trunk Manual Muscle Testing Flexion 4 Good Extension 4 Good Rotation Left 4 Good Rotation Right 4 Good Lateral Flexion Left 4 Good Lateral Flexion Right 4 Good Comments no pain with resisted testing Shoulder Strength Shoulder Manual Muscle Testing Right Flexion 5 Normal Abduction (C5) 5 Normal External Rotation 5 Normal Internal Rotation 5 Normal Left Flexion 4+ Good+ Abduction (C5) 4+ Good+ External Rotation 4 Good Internal Rotation 4+ Good+ Comments No pain with resisted motion Hip Strength Hip Manual Muscle Testing Right Flexion (L2) 4 Good Extension (S1) 4- Good- Abduction 4- Good- Adduction 4 Good External Rotation 4 Good Internal Rotation 4- Good- Left Flexion (L2) 4 Good Extension (S1) 4 Good Abduction 4 Good Adduction 4 Good External Rotation 4 Good Internal Rotation 4 Good Knee Strength Knee Manual Muscle Testing Right Flexion (S2) 4 Good Extension (L3) 4- Good- Left Flexion (S2) 4 Good Extension (L3) 4 Good Ankle/Foot Strength Ankle and Foot Manual Muscle Testing Right Dorsiflexion (L4) 4+ Good+ Plantarflexion (S1) 4 Good Inversion 4+ Good+ Eversion (S1) 4+ Good+ Comments 16 single leg heel raise- challenging but denies pain Left Dorsiflexion (L4) 4+ Good+ Plantarflexion (S1) 4 Good Inversion 4+ Good+ Eversion (S1) 4+ Good+ Comments 22 single leg heel raises PT-OP-T Assessment and Plan Start: 01/12/24 12:55 Freq: Status: Active Protocol: Document 03/18/24 07:48 NM (Rec: 03/18/24 07:55 NM [id number]) Physical Therapy Assessment Goals Five Impairment lifting 12# for work Short Term Goal (STG) Pt will be educated on body mechanics for lifting in order to demonstrate improved safety and posture during work STG Duration 8 weeks Mcfp Goal (LTG) Pt will be able to lift > 12# from floor to overhead at least 15 times without increase in symptoms in order to demonstrate improved symptom management with job requirements LTG Duration 12 weeks Four Impairment L cervical spine rotation limited 60 deg Electrotype Servicer Goal (LTG) Pt will improve L cervical spine rotation to within 5 deg of R cervical rotation for improved visual scanning LTG Duration 12 weeks Three Impairment RLE strength impaired Short Term Goal (STG) Pt will be able to perform at least 10 single leg squats B without compensation and at least 25 R heel raises without increase in symptom provocation in order to demonstrate improved symptom management for running STG Duration 8 weeks [employer]type [employer] Goal (LTG) Pt will trial jogging or running at least 2x/wk without increase in R achilles pain in order to demonstrates improved symptom management LTG Duration 12 weeks Two Impairment not performing regular strength training Short Term Goal (STG) Pt will report compliance with HEP at least 2-3x/wk in order to maximize progression with PT STG Duration 4 weeks [employer]type [employer]icer Goal (LTG) Pt will report compliance with HEP at least 3x/wk or initiate strengthening program to supplement training at least 2-3x/wk for maintenance LTG Duration 12 weeks One Impairment B ankle dorsiflexion limited [employer]icer Goal (LTG) Pt will improve B ankle dorsiflexion to at least 8 deg in order to demonstrate improved heel cord length, longer stance phase during gait, and improved symptom management LTG Duration 12 weeks Progress Towards Goals Progress Comments Goals not met due to attendance Assessment Summary Assessment Pt has been seen x6 visits following evaluation for ankle and shoulder/neck pain in December 2023. Pt was compliant with HEP. Pt has cancelled several appts prior to calling on 03/12/24 to cancel remaining appt following PT call on 03/04 to remind pt of attendance policy and to follow up with pt regarding insurance. Currently , pt does not have authorization from insurance for further visits since 02/28. Physical Therapy Plan Frequency and Duration Frequency of Treatment 1-2x/wk Duration of treatment (weeks) 12 Plan of Care Start Date 01/15/24 Plan of Care End Date 04/12/24 Therapeutic Interventions Therapeutic Interventions Balance Training,Gait Training ,Home Exercise Program,Joint Mobilizations,Manual Therapy, Neuromuscular Re-education, Orthotic/Prosthetic Management ,Patient/Caregiver Education, Self-Care/Home Management, Sensory Integration,Soft Tissue Mobilization,Taping, Therapeutic Activities, Therapeutic Exercises Modalities Cold Pack/Ice Massage,Electric Stimulation,Hot Packs, Ultrasound Discharge Physical Therapy Discharge Reasons No Longer Attending PT Discharge Comments Pt was evaluated in December 2023 for neck/shoulder and ankle pain. He has not attended PT since 02/13/24, cancelling 4 appt via reminder system before calling to cancel remaining appt following PT kumar on 03/04 to remind pt of attendance policy . Pt is not in compliance with attending policy. He also does not have authorization for further PT from insurance at this time. Pt will need new PT referral in order to return to PT for new episode of care in future. Next Visit Focus/Plan Next Note Type Discharge Summary Next Visit Plan discharge from PT
== END 2024-03-20 08:10 | disposition home or self-care (01) ==
LOC: PHYS 09:45
PROVIDERS: Family Provider Family Medicine; PCP Family Medicine; Referring Provider Family Medicine; Visit Provider Family Medicine
DX: M79.18 Myalgia, other site (principal); M76.60 Achilles tendinitis, unspecified leg; M25.671 Stiffness of right ankle, not elsewhere classified; M25.611 Stiffness of right shoulder, not elsewhere classified; R53.1 Weakness; R27.8 Other lack of coordination
CPT/HCPCS: 97110; 97140; 97161